=== PATIENT | female | born 1985 | race African-American/Black ===

== ENCOUNTER 2016-08-19 10:06 | Emergency (ER) | payer OTHER ==
[~2016-08-19] VITALS: Ht 165.1 cm; Wt 99.3 kg
[2016-08-19 10:12] VITALS: BP 116/78; PULSE 72; RESP 16; TEMP 99; O2SAT 100
[2016-08-19 10:33] LABS: BLOOD, URINE TRACE (NEG); GLUCOSE,URINE NEG (NEG); KETONE, URINE NEG (NEG); NITRITE,URINE NEG (NEG)
[2016-08-19 11:14] LABS: METHOD OF COLLECTION CLEAN CATCH; RBC, URINE 0-3 /hpf (0-3); URINE COLOR YELLOW (YELLW/STRAW)
[2016-08-19 11:15] LABS: COMMENT (UR) CULT NOT INDICATED; CULTURE IF INDICATED CULT NOT INDICATED; SQUAMOUS EPITHELIAL CELL URINE 0-5 /hpf (0-5)
[2016-08-19] MEDS ORDERED: CEPH-460 PO (11:16)
[2016-08-19] MEDS ORDERED: PYRI200T4 PO (11:16)
--- NOTE | 2016-08-19 11:16 | PD ---
HPI Chief Complaint: Complaint Time Seen by Provider: 11:01 Travel History International Travel<30 days: No Contact w/Intl Traveler<30days: No Traveled to known affect area: No History of Present Illness HPI 31-year-old woman who presents to the emergency department complaining of pain with urination and some low back pain ongoing for the past several days. No fevers or chills, nausea vomiting, vaginal discharge, vaginal bleeding. She has a history of urinary tract infections and states this feels very similar to when she's had trouble in the past. She is currently sexually active one male partner. History Past Medical History Medical History: Denies Significant Hx Tetanus Vaccination: Unknown LMP: 07/19/17 : 3 Para: 1 Social History Alcohol Use: No (occ) Tobacco Use: No Allergies-Medications (Allergen,Severity, Reaction): Coded Allergies: No Known Allergies (Verified , 08/19/16) Reported Meds & Prescriptions Reported Meds & Active Scripts Active Review of Systems Except as stated in HPI: all other systems reviewed are Neg Physical Exam Narrative GENERAL: Well-appearing 31 year-old woman, no acute distress. SKIN: Warm and dry. CARDIOVASCULAR: Regular rate and rhythm. No murmur appreciated. RESPIRATORY: No accessory muscle use. Clear to auscultation. Breath sounds equal bilaterally. GASTROINTESTINAL: Abdomen soft, non-tender, nondistended. Hepatic and splenic margins not palpable. MUSCULOSKELETAL: No obvious deformities. PELVIC: Normal external female genitalia. Scant white vaginal discharge. Minimal pelvic tenderness. No camila cervical motion tenderness, uterine enlargement, or adnexal masses. Data Data Last Documented VS Vital Signs Date Time Temp Pulse Resp B/P Pulse Ox O2 Delivery O2 Flow Rate FiO2 08/19/16 10:12 99.0 72 16 116/78 100 Orders Urinalysis - C+S If Indicated (08/19/16 10:16) Ed Urine Pregnancytest Poc (08/19/16 10:16) Ibuprofen (Motrin) (08/19/16 11:30) Gc And Chlamydia Pcr (08/19/16 11:24) Wet Prep Profile (08/19/16 11:24) Labs Laboratory Tests Test 08/19/16 10:17 Urine Collection Type CLEAN CATCH Urine Color YELLOW Urine Turbidity CLEAR Urine pH 6.0 Urine Specific [place] 1.021 Urine Protein NEG mg/dL Urine Glucose (UA) NEG mg/dL Urine Ketones NEG mg/dL Urine Occult Blood TRACE Urine Nitrite NEG Urine Bilirubin NEG Urine Leukocyte Esterase NEG Urine RBC 0-3 /hpf Urine Squamous Epithelial 0-5 /hpf Cells Microscopic Urinalysis Comment CULT NOT INDICATED Urine Collection Time 10:17 [facility] Medical Decision Making Medical Screen Exam Complete: Yes Emergency Medical Condition: Yes Interpretation(s) Point of care hCG negative UA negative Differential Diagnosis UTI, cervicitis, other Narrative Course Medical decision making: INITIAL: 31-year-old with symptoms strongly suggestive of urinary tract infection. We'll check UA, likely outpatient treatment. 11:25 AM: UA negative. Patient on repeat questioning does endorse some abnormal vaginal discharge, thinning clear, that she attributes to her which she thought was a urinary tract infection. We'll do pelvic exam, check GC chlamydia for possible STI. FINAL: Normal pelvic exam. Etiology of patient's discomfort is unclear. Recommend supportive treatment, follow-up with her primary physician if not improved in 7-10 days. Diagnosis Primary Impression: Lower abdominal pain Additional Instructions: Take Naprosyn as needed for pain. Follow-up with her primary doctor for not completely well in 7-10 days. Return to the emergency department for any new or worsening symptoms. Med/Other Pt SpecificInfo: Prescription(s) given, No Change to Meds Scripts Naproxen (Naprosyn)500 Mg His177 Mg PO BID PRN (PAIN SCALE 1 TO 10) #20 TAB Prov:Gerber Hernandez MD 08/19/16 Disposition: 01 DISCHARGE HOME Condition: Stable Gerber Hernandez MD Aug 19, 2016 11:16
[2016-08-19] MEDS ORDERED: IBUPROFEN 600 MG TAB PO ONE (11:30)
[2016-08-19] MEDS ORDERED: NAPR500 PO (11:50)
[2016-08-19 19:40] LABS: CHLAMYDIA PCR NOT DETECTED (NOT DETECT); NEISSERIA PCR NOT DETECTED (NOT DETECT)
== END 2016-08-19 12:05 | disposition home or self-care (01) ==
LOC: PHED 10:06 → PHEFT 12:05
DX: R10.30 Lower abdominal pain, unspecified (principal)
CPT/HCPCS: 81001; 84703; 87210; 87491; 87591; 99283

== ENCOUNTER 2016-11-29 08:15 | Emergency (ER) | payer MEDICAID, OTHER ==
[~2016-11-29] VITALS: Ht 165.1 cm; Wt 96.1 kg
[~2016-11-29 08:15] MED LIST: NAPR500 PO
[2016-11-29 08:19] VITALS: BP 97/67; PULSE 84; RESP 16; TEMP 97.5; O2SAT 100
[2016-11-29] MEDS ORDERED: SODIUM CHLORIDE 0.9% FLUSH 10 ML FLUSH IVF PRN (08:45)
[2016-11-29] MEDS ORDERED: SODIUM CHLORID 0.9% 500 ML INJ 500 ML IV ONE (08:45)
[2016-11-29] MEDS ORDERED: MORPHINE SULFATE 4 MG/ML INJ IV PUSH ONE (08:45)
[2016-11-29] MEDS ORDERED: KETOROLAC TROMETHAMINE 30 MG/ML (IVP) VIAL IV PUSH ONE (08:45)
[2016-11-29] MEDS ORDERED: ONDANSETRON HCL 4 MG/2 ML VIAL IV PUSH ONE (08:45)
--- NOTE | 2016-11-29 08:46 | PD ---
HPI Chief Complaint: GI Complaint Time Seen by Provider: 08:27 Travel History International Travel<30 days: No Contact w/Intl Traveler<30days: No Traveled to known affect area: No History of Present Illness HPI The patient is a 31-year-old after [place]ian female who presents to the emergency department for left-sided chest pain and left axilla pain. The patient has a one-week history of left axillary/shoulder pain, she initially thought she slept on her shoulder roll. The patient then thought she possibly had dislocated her left shoulder. The patient states the pain is under the left axilla, radiates to the anterior aspect left chest wall and to the posterior aspect left shoulder, worse with palpation and certain movements. She denies any numbness or tingling of the left upper extremity. The patient is right-hand dominant. She denies any anterior chest pain except associated over the anterior aspect left shoulder. She denies any shortness of breath. She does complain of mild nausea and dizziness. The patient denies any recent hospitalizations, travel, surgeries, or history of pulmonary embolism/DVT. The patient denies any swollen over the affected area but does notice painful. She denies any history of hidradenitis. Symptoms are moderate, slightly worse with palpation and certain movements, minimally alleviated at rest. She denies any associated fever. PFSH Past Medical History Medical History: Denies Significant Hx Hx Anticoagulant Therapy: No Asthma: No Cancer: No Cardiovascular Problems: No Diabetes: No Diminished Hearing: No Endocrine: No Gastrointestinal Disorders: No Genitourinary: No Hepatitis: No Hiatal Hernia: No Hypertension: No Medical other: No Musculoskeletal: No Neurologic: No Psychiatric: No Reproductive: No Respiratory: No Thyroid Disease: No Influenza Vaccination: No ?: Not : 3 Para: 1 Miscarriage: 1 : 1 Past Surgical History Abdominal Surgery: No AICD: No Cardiac Surgery: No Ear Surgery: No Endocrine Surgery: No Eye Surgery: No Genitourinary Surgery: No Gynecologic Surgery: No Joint Replacement: No Neurologic Surgery: No Oral Surgery: No Pacemaker: No Thoracic Surgery: No Other Surgery: No Social History Alcohol Use: No Tobacco Use: Yes (1 cig daily) Substance Use: No Allergies-Medications (Allergen,Severity, Reaction): Coded Allergies: No Known Allergies (Verified , 11/29/16) Reported Meds & Prescriptions Reported Meds & Active Scripts Active No Active Prescriptions or Reported Medications Review of Systems Except as stated in HPI: all other systems reviewed are Neg General / Constitutional: No: Fever HENT: Positive: Lightheadedness Cardiovascular: Positive: Chest Pain or Discomfort (pain under the left axilla and anterior aspect left chest just anterior to the left shoulder, worse with palpation), No: Diaphoresis Respiratory: No: Shortness of Breath Gastrointestinal: Positive: Nausea, No: Vomiting, Abdominal Pain Musculoskeletal: Positive: Pain (as noted in the history of present illness) Neurologic: No: Paresthesia, Sensory Disturbance Physical Exam Narrative GENERAL: Awake, alert, pleasant 31-year-old female who appears her stated age and is in no acute respiratory distress. SKIN: Focused skin assessment warm/dry. HEAD: Atraumatic. Normocephalic. EYES: No injection or drainage. ENT: No nasal bleeding or discharge. Mucous membranes pink and moist. NECK: Trachea midline. No JVD. CARDIOVASCULAR: Regular rate and rhythm. No murmur appreciated. RESPIRATORY: No accessory muscle use. Clear to auscultation. Breath sounds equal bilaterally. GASTROINTESTINAL: Abdomen soft, non-tender, nondistended. No rebound tenderness. MUSCULOSKELETAL: The patient has tenderness in the left axilla, I cannot palpate or localize any single enlarged nodes. No obvious fluctuance or evidence of hidradenitis. Patient is able to extend the left arm as well as abduct and adduct left shoulder and internally rotate the shoulder. Positive left radial pulse. Intrinsic hand muscles on the left are intact. NEUROLOGICAL: Awake and alert. No obvious cranial nerve deficits. Motor grossly within normal limits. Normal speech. PSYCHIATRIC: Appropriate mood and affect; insight and judgment normal. Data Data Last Documented VS Vital Signs Date Time Temp Pulse Resp B/P Pulse Ox O2 Delivery O2 Flow Rate FiO2 11/29/16 09:15 101/62 104/68 11/29/16 08:59 98 Room Air 11/29/16 08:19 97.5 84 16 Orders Electrocardiogram (11/29/16 08:37) Ckmb (Isoenzyme) Profile (11/29/16 08:37) Complete Blood Count With Diff (11/29/16 08:37) Comprehensive Metabolic Panel (11/29/16 08:37) D-Dimer (11/29/16 08:37) Magnesium (Mg) (11/29/16 08:37) Prothrombin Time / Inr (Pt) (11/29/16 08:37) Act Partial Throm Time (Ptt) (11/29/16 08:37) Troponin I (11/29/16 08:37) Chest, Single Ap (11/29/16 08:37) Ecg Monitoring (11/29/16 08:37) Bilateral Bp Monitoring (11/29/16 08:37) Iv Access Insert/Monitor (11/29/16 08:37) Oximetry (11/29/16 08:37) Oxygen Administration (11/29/16 08:37) Morphine Inj (Morphine Inj) (11/29/16 08:45) Sodium Chloride 0.9% Flush (Ns Flush) (11/29/16 08:45) Sodium Chlorid 0.9% 500 Ml Inj (Ns 500 M (11/29/16 08:45) Ondansetron Inj (Zofran Inj) (11/29/16 08:45) Ketorolac Inj (Toradol Inj) (11/29/16 08:45) Labs Laboratory Tests Test 11/29/16 08:54 White Blood Count 6.0 TH/MM3 Red Blood Count 4.61 MIL/MM3 Hemoglobin 12.9 GM/DL Hematocrit 39.7 % Mean Corpuscular Volume 86.1 FL Mean Corpuscular Hemoglobin 28.1 PG Mean Corpuscular Hemoglobin 32.7 % Concent Red Cell Distribution Width 12.6 % Platelet Count 262 TH/MM3 Mean Platelet Volume 7.5 FL Neutrophils (%) (Auto) 68.0 % Lymphocytes (%) (Auto) 22.5 % Monocytes (%) (Auto) 6.8 % Eosinophils (%) (Auto) 2.2 % Basophils (%) (Auto) 0.5 % Neutrophils # (Auto) 4.2 TH/MM3 Lymphocytes # (Auto) 1.3 TH/MM3 Monocytes # (Auto) 0.4 TH/MM3 Eosinophils # (Auto) 0.1 TH/MM3 Basophils # (Auto) 0.0 TH/MM3 CBC Comment DIFF FINAL Differential Comment Prothrombin Time 11.2 SEC Prothromb Time International 1.0 RATIO Ratio Activated Partial 27.9 SEC Thromboplast Time D-Dimer Quantitative (PE/DVT) 0.33 MG/L FEU Sodium Level 142 MEQ/L Potassium Level 3.7 MEQ/L Chloride Level 107 MEQ/L Carbon Dioxide Level 23.6 MEQ/L Anion Gap 11 MEQ/L Blood Urea Nitrogen 9 MG/DL Creatinine 0.71 MG/DL Estimat Glomerular Filtration 118 ML/MIN Rate Random Glucose 121 MG/DL Calcium Level 8.5 MG/DL Magnesium Level 2.1 MG/DL Total Bilirubin 0.4 MG/DL Aspartate Amino Transf 12 U/L (AST/SGOT) Alanine Aminotransferase 24 U/L (ALT/SGPT) Alkaline Phosphatase 78 U/L Total Creatine Kinase 96 U/L Troponin I LESS THAN 0.02 NG/ML Total Protein 6.8 GM/DL Albumin 3.6 GM/DL MDM Medical Decision Making Medical Screen Exam Complete: Yes Emergency Medical Condition: Yes Medical Record Reviewed: Yes Interpretation(s) EKG reveals normal sinus rhythm with a rate of 75. Q wave noted in lead 3. Low QRS voltage in precordial leads. Laboratory Tests Test 11/29/16 08:54 White Blood Count 6.0 TH/MM3 Red Blood Count 4.61 MIL/MM3 Hemoglobin 12.9 GM/DL Hematocrit 39.7 % Mean Corpuscular Volume 86.1 FL Mean Corpuscular Hemoglobin 28.1 PG Mean Corpuscular Hemoglobin 32.7 % Concent Red Cell Distribution Width 12.6 % Platelet Count 262 TH/MM3 Mean Platelet Volume 7.5 FL Neutrophils (%) (Auto) 68.0 % Lymphocytes (%) (Auto) 22.5 % Monocytes (%) (Auto) 6.8 % Eosinophils (%) (Auto) 2.2 % Basophils (%) (Auto) 0.5 % Neutrophils # (Auto) 4.2 TH/MM3 Lymphocytes # (Auto) 1.3 TH/MM3 Monocytes # (Auto) 0.4 TH/MM3 Eosinophils # (Auto) 0.1 TH/MM3 Basophils # (Auto) 0.0 TH/MM3 CBC Comment DIFF FINAL Differential Comment Prothrombin Time 11.2 SEC Prothromb Time International 1.0 RATIO Ratio Activated Partial 27.9 SEC Thromboplast Time D-Dimer Quantitative (PE/DVT) 0.33 MG/L FEU Sodium Level 142 MEQ/L Potassium Level 3.7 MEQ/L Chloride Level 107 MEQ/L Carbon Dioxide Level 23.6 MEQ/L Anion Gap 11 MEQ/L Blood Urea Nitrogen 9 MG/DL Creatinine 0.71 MG/DL Estimat Glomerular Filtration 118 ML/MIN Rate Random Glucose 121 MG/DL Calcium Level 8.5 MG/DL Magnesium Level 2.1 MG/DL Total Bilirubin 0.4 MG/DL Aspartate Amino Transf 12 U/L (AST/SGOT) Alanine Aminotransferase 24 U/L (ALT/SGPT) Alkaline Phosphatase 78 U/L Total Creatine Kinase 96 U/L Troponin I LESS THAN 0.02 NG/ML Total Protein 6.8 GM/DL Albumin 3.6 GM/DL Chest x-rays unremarkable. Differential Diagnosis Differential diagnosis includes abscess, hidradenitis, pulmonary embolism, lymphadenitis, cancer, neuralgia, DVT. Narrative Course IV was established, labs are drawn and sent, and the patient was placed on cardiac telemetry monitoring and continuous pulse oximetry monitoring. EKG was ordered and interpreted. D-dimer sent to lab. The patient was administered morphine, Zofran, and IV fluids. Chest x-rays unremarkable. D-dimer is negative. EKG reveals low QRS voltage, however, chest x-ray is unremarkable. Both the patient's pain is radiating from the left axilla, shortness of soft tissue injury versus lymphadenitis. Therefore, patient will be placed on Keflex and an anti-inflammatory as well as pain medication. She is advised to follow-up with her primary physician and return if symptoms worsen or progress. Diagnosis Primary Impression: Pain in left axilla Patient Instructions: General Instructions Additional Instructions: Medications as directed. Follow-up with her primary physician. Return if symptoms worsen or progress. Warm compresses to the left axilla. Med/Other Pt SpecificInfo: Prescription(s) given Scripts Hydrocodone-Acetaminophen ([place])5-325 mg Tab1 Tab PO Q6H PRN (PAIN) #12 TAB Ref 0 Prov:Nando John MD 11/29/16 Ibuprofen 600 Mg [id number] Mg PO Q6H PRN (Pain/Inflammation) #20 TAB Ref 0 Prov:Nando John MD 11/29/16 Cephalexin (Keflex)500 Mg [id number] Mg PO Q6H 7 Days Ref 0 Prov:Nando John MD 11/29/16 Disposition: 01 DISCHARGE HOME Condition: Stable Nando John MD Nov 29, 2016 08:46
[2016-11-29 08:59] VITALS: O2SAT 98
[2016-11-29 08:59] LABS: AUTOMATED NEUTROPHIL # 4.2 TH/MM3 (1.8-7.7); BASOPHIL % 0.5 % (0.0-2.0); EOSINOPHIL # 0.1 TH/MM3 (0-0.4); EOSINOPHIL % 2.2 % (0.0-4.0); HEMATOCRIT 39.7 % (35.0-46.0); HEMO FLAGS DIFF FINAL; LYMPH % 22.5 % (9.0-44.0); LYMPHOCYTE # 1.3 TH/MM3 (1.0-4.8); MEAN CELL VOLUME 86.1 FL (80.0-100.0); MEAN CORPUSCULAR HEMOGLOBIN 28.1 PG (27.0-34.0); MEAN CORPUSCULAR HGB CONC 32.7 % (32.0-36.0); MONO % 6.8 % (0.0-8.0); PLATELET COUNT 262 TH/MM3 (150-450); RED BLOOD COUNT 4.61 MIL/MM3 (4.00-5.30); RED CELL DISTRIBUTION WIDTH 12.6 % (11.6-17.2)
[2016-11-29 09:06] LABS: CHLORIDE 107 MEQ/L (98-107); POTASSIUM 3.7 MEQ/L (3.5-5.1); SODIUM (NA) 142 MEQ/L (136-145)
[2016-11-29 09:10] LABS: ANION GAP 11 MEQ/L (5-15); BICARBONATE 23.6 MEQ/L (21.0-32.0); BLOOD UREA NITROGEN 9 MG/DL (7-18); MAGNESIUM 2.1 MG/DL (1.5-2.5)
[2016-11-29 09:13] LABS: ALT (GPT) 24 U/L (10-53); AST (GOT) 12 U/L (15-37); GLOMERULAR FILTRATION RATE 118 ML/MIN (>89)
[2016-11-29 09:15] VITALS: BP_SYST 101; BP_SYST 104; BP_DIAS 62; BP_DIAS 68
[2016-11-29 09:15] LABS: TOTAL BILIRUBIN ADULT 0.4 MG/DL (0.2-1.0)
[2016-11-29 09:16] LABS: ALKALINE PHOSPHATASE 78 U/L (45-117)
[2016-11-29 09:20] LABS: CREATINE KINASE 96 U/L (26-192)
[2016-11-29 09:28] LABS: APTT (PATIENT) 27.9 SEC (24.3-30.1); PROTHROMBIN TIME - PATIENT 11.2 SEC (9.8-11.6)
[2016-11-29] MEDS ORDERED: CEPH-460 PO (09:39)
[2016-11-29] MEDS ORDERED: NORC5TAB PO (09:39)
[2016-11-29] MEDS ORDERED: IBUP-232 PO (09:39)
--- NOTE | 2016-11-29 09:56 | RADHPO ---
EXAM DATE/TIME: 11/29/2016 09:19 [facility] COMPARISON: CHEST PA & LAT, September 20, 2015, 14:10. INDICATIONS : Chest pain. MEDICAL HISTORY : None. SURGICAL HISTORY : None. ENCOUNTER: Initial ACUITY: 1 day PAIN SCORE: 6/10 LOCATION: Bilateral chest FINDINGS: The lungs are clear without infiltrate, nodule, or mass. There is no appreciable pleural effusion fo r technique. Heart and mediastinum are unremarkable. CONCLUSION: No acute cardiopulmonary disease. Pita Sousa MD on November 29, 2016 at 9:40 Board Certified Radiologist. This report was verified electronically.
--- NOTE | 2016-11-29 14:03 | EKG ---
Date Performed: 11/29/2016 Time Performed: 08:43:58 PTAGE: 31 years EKG: Sinus rhythm Low QRS voltage in the precordial leads Poor R wave progression which may be normal variant Since pr evious tracing, no significant change noted Abnormal ECG PREVIOUS TRACING : 09/20/2015 12.22 DOCTOR: Tristen Wang Interpretating Date/Time 11/29/2016 14:01:58
== END 2016-11-29 10:08 | disposition home or self-care (01) ==
LOC: PHED 08:15
DX: M79.622 Pain in left upper arm (principal); R94.31 Abnormal electrocardiogram [ECG] [EKG]; R42 Dizziness and giddiness; R11.0 Nausea; F17.210 Nicotine dependence, cigarettes, uncomplicated; R07.9 Chest pain, unspecified
CPT/HCPCS: 71010; 80053; 82550; 83735; 84484; 85025; 85379; 85610; 85730; 93005; 96374; 96375; 99284; J1885; J2270; J2405; J7040

== ENCOUNTER 2016-12-14 11:15 | Emergency (ER) | payer SELFPAY ==
[~2016-12-14] VITALS: Ht 165.1 cm; Wt 97.0 kg
[~2016-12-14 11:15] MED LIST changes: +CEPH-460 PO; +IBUP-232 PO; -NAPR500 PO; +NORC5TAB PO
[2016-12-14 11:18] VITALS: BP 112/79; PULSE 73; RESP 16; TEMP 98.3; O2SAT 100
--- NOTE | 2016-12-14 11:58 | PD ---
HPI Chief Complaint: Pain: Acute or Chronic Time Seen by Provider: 11:38 Travel History International Travel<30 days: No Contact w/Intl Traveler<30days: No Traveled to known affect area: No History of Present Illness HPI 31-year-old female presents with persistent left axilla and shoulder pain since recent evaluation here. She is been taking Motrin and the antibiotics as prescribed without change. She states she does not have a primary care physician. She states that she's also had a little bit of upset stomach with some diarrhea. She denies other specific complaints. She states when she moves her arm the pain is worse and will go into her neck and chest. She denies other modifying factors other than sometimes with deep breaths. Quality pain is sharp. Severity is moderate. PFSH Past Medical History Hx Anticoagulant Therapy: No Asthma: No Cancer: No Cardiovascular Problems: No Diabetes: No Diminished Hearing: No Endocrine: No Gastrointestinal Disorders: No Genitourinary: No Hepatitis: No Hiatal Hernia: No Hypertension: No Musculoskeletal: No Neurologic: No Psychiatric: No Reproductive: No Respiratory: No Thyroid Disease: No Influenza Vaccination: No ?: Unknown LMP: LAST MONTH"CAN'T REMEMBER" : 3 Para: 1 Miscarriage: 1 : 1 Past Surgical History Abdominal Surgery: No AICD: No Cardiac Surgery: No Ear Surgery: No Endocrine Surgery: No Eye Surgery: No Genitourinary Surgery: No Gynecologic Surgery: No Joint Replacement: No Neurologic Surgery: No Oral Surgery: No Pacemaker: No Thoracic Surgery: No Other Surgery: No Social History Alcohol Use: No Tobacco Use: Yes (1 cig daily) Substance Use: No Allergies-Medications (Allergen,Severity, Reaction): Coded Allergies: No Known Allergies (Verified , 12/14/16) Reported Meds & Prescriptions Reported Meds & Active Scripts Active Skelaxin (Metaxalone) 800 Mg Tab 800 Mg PO HS PRN Review of Systems Except as stated in HPI: all other systems reviewed are Neg Physical Exam Narrative GENERAL: Well-nourished, well-developed patient. Well-appearing SKIN: Warm and dry. HEAD: Normocephalic and atraumatic. EYES: No injection or drainage. ENT: No nasal drainage noted. NECK: Supple, trachea midline. Nontender midline, left trapezius tender to palpation CARDIOVASCULAR: Regular rate and rhythm RESPIRATORY: Breath sounds equal bilaterally. No accessory muscle use. GASTROINTESTINAL: Abdomen soft, non-tender, nondistended. EXTREMITIES: No edema.Pain with palpation of palpation and range of motion of left shoulder and axilla without associated lymphadenopathy or cellulitis, no pain with other joints , neurovascularly intact, no lacerations over, compartments soft. BACK: Nontender without obvious deformity in midline. NEUROLOGICAL: Awake and alert. Motor and sensory grossly within normal limits. Normal speech. Data Data Last Documented VS Vital Signs Date Time Temp Pulse Resp B/P Pulse Ox O2 Delivery O2 Flow Rate FiO2 12/14/16 11:18 98.3 73 16 112/79 100 Orders Shoulder, Complete (>2vws) (12/14/16 ) Ketorolac Inj (Toradol Inj) (12/14/16 12:00) MDM Medical Decision Making Medical Screen Exam Complete: Yes Emergency Medical Condition: Yes Medical Record Reviewed: Yes (recent ER visit with normal blood work and d- dimer) Interpretation(s) left shoulder xray no acute Differential Diagnosis Musculoskeletal strain, tendinitis, rotator cuff tear Narrative Course Will check left shoulder x-ray and dose with Toradol and reevaluate. xray without fracture, Patient denies any new complaints, all questions answered. Patient knows that follow up is incumbent on them and to return to the emergency room immediately if new or worsening symptoms develop. Patient given strict return precautions, vitals reviewed and are normal, agrees to further workup as an outpatient. nurse at bedside Diagnosis Primary Impression: Pain in left axilla Additional Impression: Left shoulder pain Qualified Code: M25.512 - Acute pain of left shoulder Patient Instructions: General Instructions Additional Instructions: motrin with food, follow with primary tommorrow, return with any emergent need Med/Other Pt SpecificInfo: Prescription(s) given Scripts Metaxalone (Skelaxin)800 Mg [id number] Mg PO HS PRN (PAIN SCALE 1 TO 10) #10 TAB Prov:Celena Santoyo MD 12/14/16 Disposition: 01 DISCHARGE HOME Condition: Stable Celena Santoyo MD December 14, 2016 11:58
[2016-12-14] MEDS ORDERED: KETOROLAC TROMETHAMINE 60 MG/2 ML (IM) VIAL IM ONE (12:00)
--- NOTE | 2016-12-14 13:16 | RADHPO ---
EXAM DATE/TIME: 12/14/2016 12:35 [facility] COMPARISON: CHEST SINGLE AP, November 29, 2016, 9:19. INDICATIONS : Left shoulder, axillary pain. MEDICAL HISTORY : None. SURGICAL HISTORY : None. ENCOUNTER: Initial ACUITY: 1 month PAIN SCORE: 6/10 LOCATION: Left axillary shoulder FINDINGS: Multiple view examination of the left shoulder demonstrates no evidence of fracture or dislocation. The glenohumeral and acromioclavicular joints are maintained. There is normal range of motion betwee n internal and external rotation. Bony mineralization is normal. CONCLUSION: 1. Normal examination. Devon Zhu MD on December 14, 2016 at 13:14 Board Certified Radiologist. This report was verified electronically.
[2016-12-14] MEDS ORDERED: META800T81 PO (13:18)
== END 2016-12-14 13:33 | disposition home or self-care (01) ==
LOC: PHED 11:15
DX: M25.512 Pain in left shoulder (principal)
CPT/HCPCS: 73030; 96372; 99283; J1885

== ENCOUNTER 2017-04-26 10:32 | Emergency (ER) | payer MEDICAID ==
[~2017-04-26] VITALS: Ht 165.1 cm; Wt 96.8 kg
[~2017-04-26 10:32] MED LIST changes: -CEPH-460 PO; -IBUP-232 PO; +META800T81 PO; -NORC5TAB PO
[2017-04-26 10:50] VITALS: BP 114/76; PULSE 80; RESP 18; TEMP 98.5; O2SAT 99
--- NOTE | 2017-04-26 11:53 | PD ---
HPI Chief Complaint: Abdominal Pain Time Seen by Provider: 11:51 Travel History International Travel<30 days: No Contact w/Intl Traveler<30days: No History of Present Illness HPI Patient comes in complaining of suprapubic abdominal pain that began approximately week ago. Pain feels similar previous UTIs. Patient being worse over the past week. Pain radiates to her low back. Patient tried Kristalose improve his symptoms. Patient has anything making it worse. Denies any vaginal discharge, fevers, chest pain, shortness of breath, vomiting, loss or change in bowel movement, , or headaches. PFSH Past Medical History Hx Anticoagulant Therapy: No Asthma: No Cancer: No Cardiovascular Problems: No Diabetes: No Diminished Hearing: No Endocrine: No Gastrointestinal Disorders: No Genitourinary: No Hepatitis: No Hiatal Hernia: No Hypertension: No Musculoskeletal: No Neurologic: No Psychiatric: No Reproductive: No Respiratory: No Thyroid Disease: No : 3 Para: 1 Miscarriage: 1 : 1 Past Surgical History Abdominal Surgery: No AICD: No Cardiac Surgery: No Ear Surgery: No Endocrine Surgery: No Eye Surgery: No Genitourinary Surgery: No Gynecologic Surgery: No Joint Replacement: No Neurologic Surgery: No Oral Surgery: No Pacemaker: No Thoracic Surgery: No Other Surgery: No Social History Alcohol Use: No Tobacco Use: Yes (1 cig daily) Substance Use: No Allergies-Medications (Allergen,Severity, Reaction): Coded Allergies: No Known Allergies (Verified , 04/26/17) Reported Meds & Prescriptions Reported Meds & Active Scripts Active Doxycycline Hyclate 100 Mg Cap 100 Mg PO BID Flagyl (Metronidazole) 500 Mg Tab 500 Mg PO BID 14 Days Review of Systems Except as stated in HPI: all other systems reviewed are Neg Physical Exam Narrative GENERAL: Well-developed, overly nourished, in no acute distress, and non-ill appearing. SKIN: Focused skin assessment warm and dry. HEAD: Atraumatic. Normocephalic. EYES: Pupils equal and round. EOMI. No scleral icterus. No injection or drainage. ENT: No nasal bleeding or discharge. Mucous membranes pink and moist. NECK: Trachea midline. Supple. No nuclear rigidity. CARDIOVASCULAR: Regular rate and rhythm. No murmur appreciated. RESPIRATORY: No accessory muscle use. No respiratory distress. Clear to auscultation. Breath sounds equal bilaterally. GASTROINTESTINAL: Abdomen soft, nondistended, and no guarding. Hepatic and splenic margins not palpable. Normal bowel sounds 4. No pulsatile mass. Patient reports tenderness suprapubic area. No CVA tenderness. GENITOURINARY: Normal external genitalia without lesions or erythema. Vaginal vault without blood or drainage. Cervical os was closed with greenish drainage. Cervical motion tenderness. Uterus nontender and nonenlarged. Bilateral adnexa nontender without masses. Exam was performed presents of staff auditor Tressa at all times. MUSCULOSKELETAL: No obvious deformities. No clubbing. No cyanosis. No edema. Full range of motion. NEUROLOGICAL: Awake and alert. No obvious cranial nerve deficits. Motor grossly within normal limits. Normal speech. PSYCHIATRIC: Appropriate mood and affect; insight and judgment normal. Data Data Last Documented VS Vital Signs Date Time Temp Pulse Resp B/P (MAP) Pulse Ox O2 Delivery O2 Flow Rate FiO2 04/26/17 15:25 74 16 118/72 (87) 99 04/26/17 10:50 98.5 Orders Orders Urinalysis - C+S If Indicated (04/26/17 11:45) Ed Urine Pregnancytest Poc (04/26/17 11:45) Complete Blood Count With Diff (04/26/17 11:49) Comprehensive Metabolic Panel (04/26/17 11:49) Iv Access Insert/Monitor (04/26/17 11:49) Ecg Monitoring (04/26/17 11:49) Urine Culture (04/26/17 11:57) Gc And Chlamydia Pcr (04/26/17 14:36) Wet Prep Profile (04/26/17 14:36) Ceftriaxone Inj (Rocephin Inj) (04/26/17 14:45) Lidocaine Pf 1% Inj (Xylocaine-Mpf 1% In (04/26/17 14:45) Labs Laboratory Tests Test 04/26/17 11:57 04/26/17 12:08 04/26/17 14:35 Urine Collection Type CLEAN CATCH Urine Color YELLOW Urine Turbidity CLEAR Urine pH 6.0 Urine Specific [place] 1.016 Urine Protein TRACE mg/dL Urine Glucose (UA) NEG mg/dL Urine Ketones NEG mg/dL Urine Occult Blood NEG Urine Nitrite NEG Urine Bilirubin NEG Urine Leukocyte Esterase TRACE Urine RBC 0-3 /hpf Urine WBC 9-14 /hpf Urine Squamous Epithelial Cells > 8 /hpf Urine Bacteria MOD /hpf Microscopic Urinalysis Comment CULTURE INDICATED Urine Collection Time 11:57 White Blood Count 7.6 TH/MM3 Red Blood Count 4.71 MIL/MM3 Hemoglobin 13.7 GM/DL Hematocrit 40.1 % Mean Corpuscular Volume 85.2 FL Mean Corpuscular Hemoglobin 29.0 PG Mean Corpuscular Hemoglobin Concent 34.0 % Red Cell Distribution Width 12.2 % Platelet Count 279 TH/MM3 Mean Platelet Volume 7.5 FL Neutrophils (%) (Auto) 70.5 % Lymphocytes (%) (Auto) 21.9 % Monocytes (%) (Auto) 5.6 % Eosinophils (%) (Auto) 1.6 % Basophils (%) (Auto) 0.4 % Neutrophils # (Auto) 5.4 TH/MM3 Lymphocytes # (Auto) 1.7 TH/MM3 Monocytes # (Auto) 0.4 TH/MM3 Eosinophils # (Auto) 0.1 TH/MM3 Basophils # (Auto) 0.0 TH/MM3 CBC Comment DIFF FINAL Differential Comment Blood Urea Nitrogen 9 MG/DL Creatinine 0.68 MG/DL Random Glucose 90 MG/DL Total Protein 7.7 GM/DL Albumin 3.8 GM/DL Calcium Level 8.6 MG/DL Alkaline Phosphatase 89 U/L Aspartate Amino Transf (AST/SGOT) 13 U/L Alanine Aminotransferase (ALT/SGPT) 25 U/L Total Bilirubin 0.5 MG/DL Sodium Level 138 MEQ/L Potassium Level 3.8 MEQ/L Chloride Level 106 MEQ/L Carbon Dioxide Level 25.3 MEQ/L Anion Gap 7 MEQ/L Estimat Glomerular Filtration Rate 123 ML/MIN Clue Cells (Wet Prep) NONE SEEN Vaginal Trichomonas (Wet Prep) NONE SEEN Vaginal Yeast (Wet Prep) NONE SEEN MDM Medical Decision Making Medical Screen Exam Complete: Yes Emergency Medical Condition: Yes Differential Diagnosis UTI, pyelonephritis, PID, STD, cervicitis, electrolyte abnormality, other Narrative Course The patient presented with lower abdominal/pelvic pain and the patient was accordingly mildly tender. The patient otherwise appeared comfortable and hydrated. Urine analysis revealed no evidence of . Evaluation revealed clinical suspicion for cervicitis/PID. There was no evidence of TOA at this time. Findings and suspicion were discussed with the patient and instructed to have sexual partners checked and treated. Evaluation revealed no clinical evidence or picture of acute ovarian torsion at this time. The patient appears comfortable and no distress and no vomiting. The patient is to return if worsens , pain worsens or changes, develop persistent fever, inability to tolerate fluids with or without vomiting, unable to establish follow up or as needed. There was no evidence of an acute, surgical abdomen at this time. There was no clinical evidence to support cholecystitis/cholelithiasis, pancreatitis, perforation of gastric ulcer, colitis, diverticulitis, obstruction, volvulus, early appendicitis, or hernial incarceration or strangulation at this time. There was no evidence to support vascular pathology such as AAA, mesenteric ischemia, nor GIB. There was also no clinical evidence by history, exam or risk factors to suggest atypical presentation of cardiac disease such as ACS, AMI or atypical angina.. The patient agreed with plan of care and management. The patient was instructed to follow up with their physician and or [facility] and screening (hepatitis, syphilis, HIV etc.). She was provided with STD information with discharge instructions. Patient agreed with plan. Patient in no obvious distress upon re-evaluation. All pertinent laboratory result(s) discussed with patient. Patient was asked if they wanted to speak to my attending, which the patient did not wish to do at this time. Any questions/ concerns in reference to patient diagnosis/condition discussed and clarified prior to patient's discharge. Reinforced sheer importance of close follow up with patient's primary physician or primary care clinic and/or health Department. Instructed patient to return to ED immediately, if symptoms return/ worsen. Pt showed understanding of above instructions. Further instructions and recommendations were detailed in discharge paperwork. Pt ambulated without difficulty out of ED at discharge. Diagnosis Primary Impression: PID (acute pelvic inflammatory disease) Referrals: [facility] Dept. Patient Instructions: General Instructions, Pelvic Inflammatory Disease (ED), Safe Sex Practices for Adolescents (GEN), Sexually Transmitted Diseases (DC) Additional Instructions: Follow-up with your primary care physician and/or health Department for additional STD testing. Notify all sexual partners have them tested and treated. Do not have intercourse until all sexual partners tested and treated. Practice safe sex to prevent further STDs and/or unwanted pregnancies. If you would like a copy of your gonorrhea and chlamydia results bring a photo ID to medical records in 24-48 hours to get a copy. Return to the emergency department if symptoms get worse. Med/Other Pt SpecificInfo: Prescription(s) given Scripts Doxycycline Hyclate (Doxycycline Hyclate) 100 Mg Cap 100 MG PO BID for Infection, #28 CAP 0 Refills Prov: Nando John MD 04/26/17 Metronidazole (Flagyl) 500 Mg Tab 500 MG PO BID for Infection for 14 Days, TAB 0 Refills Prov: Nando John MD 04/26/17 Disposition: 01 DISCHARGE HOME Condition: Stable Fortino Wilkins Apr 26, 2017 11:53
[2017-04-26 12:14] LABS: AUTOMATED NEUTROPHIL # 5.4 TH/MM3 (1.8-7.7); BASOPHIL % 0.4 % (0.0-2.0); EOSINOPHIL # 0.1 TH/MM3 (0-0.4); EOSINOPHIL % 1.6 % (0.0-4.0); HEMATOCRIT 40.1 % (35.0-46.0); HEMO FLAGS DIFF FINAL; LYMPH % 21.9 % (9.0-44.0); LYMPHOCYTE # 1.7 TH/MM3 (1.0-4.8); MEAN CELL VOLUME 85.2 FL (80.0-100.0); MONO % 5.6 % (0.0-8.0); NEUT % 70.5 % (16.0-70.0); PLATELET COUNT 279 TH/MM3 (150-450); RED BLOOD COUNT 4.71 MIL/MM3 (4.00-5.30); RED CELL DISTRIBUTION WIDTH 12.2 % (11.6-17.2); WHITE BLOOD COUNT 7.6 TH/MM3 (4.0-11.0)
[2017-04-26 12:15] LABS: BLOOD, URINE NEG (NEG); GLUCOSE,URINE NEG (NEG); KETONE, URINE NEG (NEG); NITRITE,URINE NEG (NEG)
[2017-04-26 12:25] LABS: METHOD OF COLLECTION CLEAN CATCH; URINE COLOR YELLOW (YELLW/STRAW)
[2017-04-26 12:26] LABS: BACTERIA, URINE MOD /hpf; COMMENT (UR) CULTURE INDICATED; CULTURE IF INDICATED CULTURE INDICATED; RBC, URINE 0-3 /hpf (0-3); SQUAMOUS EPITHELIAL CELL URINE > 8 /hpf (0-5)
[2017-04-26 12:35] LABS: CHLORIDE 106 MEQ/L (98-107); POTASSIUM 3.8 MEQ/L (3.5-5.1); SODIUM (NA) 138 MEQ/L (136-145)
[2017-04-26 12:39] LABS: ANION GAP 7 MEQ/L (5-15); BICARBONATE 25.3 MEQ/L (21.0-32.0); BLOOD UREA NITROGEN 9 MG/DL (7-18)
[2017-04-26 12:42] LABS: ALT (GPT) 25 U/L (10-53); AST (GOT) 13 U/L (15-37); GLOMERULAR FILTRATION RATE 123 ML/MIN (>89)
[2017-04-26 12:43] LABS: TOTAL BILIRUBIN ADULT 0.5 MG/DL (0.2-1.0)
[2017-04-26 12:45] LABS: ALKALINE PHOSPHATASE 89 U/L (45-117)
[2017-04-26] MEDS ORDERED: DOXY100C PO (14:40)
[2017-04-26] MEDS ORDERED: METR-1 PO (14:40)
[2017-04-26] MEDS ORDERED: LIDOCAINE HCL 1% PF 30 ML VIAL XX ONE (14:45)
[2017-04-26 15:25] VITALS: BP 118/72
[2017-04-26 20:08] LABS: CHLAMYDIA PCR NOT DETECTED (NOT DETECT); NEISSERIA PCR NOT DETECTED (NOT DETECT)
== END 2017-04-26 15:28 | disposition home or self-care (01) ==
LOC: PHED 10:32
DX: N73.0 Acute parametritis and pelvic cellulitis (principal)
CPT/HCPCS: 80053; 81001; 84703; 85025; 87077; 87086; 87186; 87210; 87491; 87591; 96372; 99284; J0696

== ENCOUNTER 2017-07-12 07:05 | Emergency (ER) | payer MEDICAID ==
[~2017-07-12] VITALS: Ht 165.1 cm; Wt 98.6 kg
[~2017-07-12 07:05] MED LIST changes: +DOXY100C PO; -META800T81 PO; +METR-1 PO
[2017-07-12 07:10] VITALS: BP 120/79; PULSE 88; RESP 18; TEMP 98.6; O2SAT 98
--- NOTE | 2017-07-12 07:25 | PD ---
HPI Chief Complaint: Podiatric Assistant Problem/Complaint Time Seen by Provider: 07:25 Travel History International Travel<30 days: No Contact w/Intl Traveler<30days: No Traveled to known affect area: No History of Present Illness HPI 32-year-old female came to the emergency room with history of lower abdominal discomfort, palpitations and breast feeling heavier. Patient says that she had unprotected sex about 4 weeks ago. She took morning after pill since then. However she had some spotting and is concerned that she might be . She has taken multiple home tests and they have been negative so far. The patient is convinced that she might be because this is how she felt with her previous pregnancies. Vital signs were completely stable. No history of fever or chills. PFSH Past Medical History Narrative Medical List of her past medical, surgical, social and family history is reviewed from the nursing note. Medical History: Denies Significant Hx Hx Anticoagulant Therapy: No Asthma: No Cancer: No Cardiovascular Problems: No Diabetes: No Diminished Hearing: No Endocrine: No Gastrointestinal Disorders: No Genitourinary: No Hepatitis: No Hiatal Hernia: No Hypertension: No Musculoskeletal: No Neurologic: No Psychiatric: No Reproductive: No Respiratory: No Immunizations Current: Yes Thyroid Disease: No Tetanus Vaccination: > 5 Years Influenza Vaccination: No ?: Unknown LMP: LAST WEEK:MORNING AFTER PILL AT END OF MAY : 3 Para: 1 Miscarriage: 1 : 1 Past Surgical History Surgical History: No Previous Surgery Abdominal Surgery: No AICD: No Cardiac Surgery: No Ear Surgery: No Endocrine Surgery: No Eye Surgery: No Genitourinary Surgery: No Gynecologic Surgery: No Joint Replacement: No Neurologic Surgery: No Oral Surgery: No Pacemaker: No Thoracic Surgery: No Other Surgery: No Social History Alcohol Use: Yes (occas. mix drinks) Tobacco Use: No (occas. cigs) Substance Use: No Allergies-Medications (Allergen,Severity, Reaction): Coded Allergies: No Known Allergies (Verified Adverse Reaction, Unknown, 07/14/17) Comments No known drug allergies. Reported Meds & Prescriptions Reported Meds & Active Scripts Active Zithromax Z-Darrel (Azithromycin) 250 Mg Dspk 250 Mg PO DIRECTED 500 MG (2 tabs) day 1, then 1 tab days 2-5. Narrative Medication List of her home medications reviewed from the nursing note. Review of Systems Except as stated in HPI: all other systems reviewed are Neg Cardiovascular: Positive: Palpitations Genitourinary: Positive: Pelvic Pain Physical Exam Narrative GENERAL: Awake, alert, no obvious distress SKIN: Focused skin assessment warm/dry. HEAD: Atraumatic. Normocephalic. EYES: Pupils equal and round. No scleral icterus. No injection or drainage. ENT: No nasal bleeding or discharge. Mucous membranes pink and moist. NECK: Trachea midline. No JVD. CARDIOVASCULAR: Regular rate and rhythm. No murmur appreciated. RESPIRATORY: No accessory muscle use. Clear to auscultation. Breath sounds equal bilaterally. GASTROINTESTINAL: Abdomen soft, non-tender, nondistended. Hepatic and splenic margins not palpable. MUSCULOSKELETAL: No obvious deformities. No clubbing. No cyanosis. No edema. NEUROLOGICAL: Awake and alert. No obvious cranial nerve deficits. Motor grossly within normal limits. Normal speech. PSYCHIATRIC: Extremely flat affect; insight and judgment normal. Data Data Last Documented VS Vital Signs Date Time Temp Pulse Resp B/P (MAP) Pulse Ox O2 Delivery O2 Flow Rate FiO2 07/12/17 08:40 69 16 104/69 (81) 98 07/12/17 07:10 98.6 Orders Orders Urinalysis - C+S If Indicated (07/12/17 07:30) Ed Urine Pregnancytest Poc (07/12/17 07:30) Ed Poc Ultrasound (07/12/17 ) Ed Discharge Order (07/12/17 08:30) Labs Laboratory Tests Test 07/12/17 07:35 Urine Collection Type CLEAN CATCH Urine Color YELLOW Urine Turbidity HAZY Urine pH 6.5 Urine Specific [place] 1.023 Urine Protein NEG mg/dL Urine Glucose (UA) NEG mg/dL Urine Ketones NEG mg/dL Urine Occult Blood NEG Urine Nitrite NEG Urine Bilirubin NEG Urine Leukocyte Esterase TRACE Urine WBC 0-2 /hpf Urine Squamous Epithelial Cells 6-8 /hpf Urine Bacteria RARE /hpf Microscopic Urinalysis Comment CULT NOT INDICATED MDM Medical Decision Making Medical Screen Exam Complete: Yes Emergency Medical Condition: Yes Medical Record Reviewed: Yes Differential Diagnosis , UTI Narrative Course 8:27 AM bedside urine was negative. UA was negative for any UTI. Patient insisted that she wanted an ultrasound and I did a bedside pelvic ultrasound. I noticed a right ovarian cyst that looks like a simple cyst. There were multiple smaller cysts in the left ovary but otherwise no intrauterine. I will discharge her home after reassurance. Procedures Procedure Narrative Emergency Department Pelvic ultrasound was performed with patient consent. The curvilinear probe was used in the transverse and sagittal views within the suprapubic region revealing no intrauterine . EKG Prior to Arrival: No Diagnosis Primary Impression: Pelvic pain in female Additional Impression: Ovarian cyst Qualified Codes: N83.201 - Unspecified ovarian cyst, right side Referrals: Primary Care Physician Additional Instructions: Please return to the ER the condition worsens or any other concerns. Otherwise follow-up with your primary care next couple days. Disposition: 01 DISCHARGE HOME Condition: Stable Gisell Gary MD Jul 12, 2017 07:25
[2017-07-12 07:42] LABS: BLOOD, URINE NEG (NEG); GLUCOSE,URINE NEG (NEG); KETONE, URINE NEG (NEG); NITRITE,URINE NEG (NEG); PH, URINE 6.5 (5.0-8.5)
[2017-07-12 07:55] LABS: METHOD OF COLLECTION CLEAN CATCH; URINE COLOR YELLOW (YELLW/STRAW); WBC, URINE 0-2 /hpf (0-5)
[2017-07-12 07:56] LABS: BACTERIA, URINE RARE /hpf; COMMENT (UR) CULT NOT INDICATED; CULTURE IF INDICATED CULT NOT INDICATED
[2017-07-12 08:40] VITALS: BP 104/69
== END 2017-07-12 08:44 | disposition home or self-care (01) ==
LOC: PHED 07:05
DX: R10.2 Pelvic and perineal pain (principal); N83.201 Unspecified ovarian cyst, right side; R00.2 Palpitations
CPT/HCPCS: 81001; 84703; 99284

== ENCOUNTER 2017-07-14 10:31 | Emergency (ER) | payer MEDICAID ==
[~2017-07-14] VITALS: Ht 165.1 cm; Wt 98.5 kg
[2017-07-14 10:32] VITALS: BP 129/78; PULSE 78; RESP 18; TEMP 98.7; O2SAT 100
[2017-07-14] MEDS ORDERED: SODIUM CHLORIDE 0.9% FLUSH 10 ML FLUSH IVF PRN (11:15)
[2017-07-14] MEDS ORDERED: IBUPROFEN 800 MG TAB PO ONE (11:15)
--- NOTE | 2017-07-14 11:20 | PD ---
HPI Chief Complaint: Cold / Flu Symptoms Time Seen by Provider: 11:03 Travel History International Travel<30 days: No Contact w/Intl Traveler<30days: No Traveled to known affect area: No History of Present Illness HPI 32-year-old female presents to the emergency Department with complaint of midsternal chest pain, shortness of breath, heart palpitations, and neck pain since Wednesday. Reports body aches and sore throat. Denies ear pain, nasal congestion. Reports chest congestion. Denies cough. Denies fever. Reports vomiting one time last night after drinking tea. Chest pain is intermittent. Denies recent surgery. Denies leg edema. Denies hemoptysis. Denies history of DVT/PE. Reports feeling short of breath with onset of chest pain and feels like her heart is racing. Occurs spontaneously and unknown aggravating factors. Says when she takes deep breaths it helps relieves her symptoms. Rates pain 8/10. Describes it as an aching pain. No known relieving or aggravating factors. No family history of cardiac events at this age. Denies tobacco use. Reports history of asthma as a child. No known allergies. Has no other medical complaints. No other modifying factors or associated signs and symptoms. PFSH Past Medical History Hx Anticoagulant Therapy: No Asthma: Yes Cancer: No Cardiovascular Problems: No Diabetes: No Diminished Hearing: No Endocrine: No Gastrointestinal Disorders: No Genitourinary: No Hepatitis: No Hiatal Hernia: No Hypertension: No Musculoskeletal: No Neurologic: No Psychiatric: No Reproductive: No Respiratory: No Immunizations Current: Yes Thyroid Disease: No Tetanus Vaccination: Unknown Influenza Vaccination: No ?: Unknown : 3 Para: 1 Miscarriage: 1 : 1 Past Surgical History Abdominal Surgery: No AICD: No Cardiac Surgery: No Ear Surgery: No Endocrine Surgery: No Eye Surgery: No Genitourinary Surgery: No Gynecologic Surgery: No Joint Replacement: No Neurologic Surgery: No Oral Surgery: No Pacemaker: No Thoracic Surgery: No Other Surgery: Yes (left hand surgery) Social History Alcohol Use: Yes (occas. mix drinks) Tobacco Use: No (occas. cigs) Substance Use: No Allergies-Medications (Allergen,Severity, Reaction): Coded Allergies: No Known Allergies (Verified Adverse Reaction, Unknown, 07/14/17) Reported Meds & Prescriptions Reported Meds & Active Scripts Active No Active Prescriptions or Reported Medications Review of Systems Except as stated in HPI: all other systems reviewed are Neg Physical Exam Narrative GENERAL: Well-nourished, well-developed black female patient, in no acute distress; afebrile, nontoxic-appearing; afebrile, nontoxic-appearing SKIN: Warm and dry. No rash. HEAD: Atraumatic. Normocephalic. EYES: Pupils equal and round. No scleral icterus. No injection or drainage. ENT: Mucosa pink and moist. No erythema or exudates. No uvular edema. No uvular , palatal, or tonsillar deviation. Airway patent. EARS: Bilateral pinnae and external canals appear within normal limits. Bilateral tympanic membranes without erythema, dullness or perforation. NECK: Trachea midline. No lymphadenopathy. CARDIOVASCULAR: Regular rate and rhythm. No murmur appreciated. RESPIRATORY: No accessory muscle use. Clear to auscultation. Breath sounds equal bilaterally. No retractions or tachypnea. GASTROINTESTINAL: Abdomen soft, non-tender, nondistended. Hepatic and splenic margins not palpable. Bowel sounds are active 4 quadrants. MUSCULOSKELETAL: No obvious deformities. No clubbing. No cyanosis. No edema. NEUROLOGICAL: Awake and alert. Oriented 3. No obvious cranial nerve deficits. Motor grossly within normal limits. Normal speech. Moves all extremities. 5/5 strength to all extremities. PSYCHIATRIC: Appropriate mood and affect; insight and judgment normal. Data Data Last Documented VS Vital Signs Date Time Temp Pulse Resp B/P (MAP) Pulse Ox O2 Delivery O2 Flow Rate FiO2 07/14/17 13:38 75 16 149/75 (99) 99 Room Air 07/14/17 10:32 98.7 Orders Orders Electrocardiogram (07/14/17 11:12) Basic Metabolic Panel (Bmp) (07/14/17 11:12) Ckmb (Isoenzyme) Profile (07/14/17 11:12) Complete Blood Count With Diff (07/14/17 11:12) Magnesium (Mg) (07/14/17 11:12) Prothrombin Time / Inr (Pt) (07/14/17 11:12) Act Partial Throm Time (Ptt) (07/14/17 11:12) Troponin I (07/14/17 11:12) Chest, Single Ap (07/14/17 11:12) Ecg Monitoring (07/14/17 11:12) Iv Access Insert/Monitor (07/14/17 11:12) Oximetry (07/14/17 11:12) Oxygen Administration (07/14/17 11:12) Sodium Chloride 0.9% Flush (Ns Flush) (07/14/17 11:15) Influenzae A/B Antigen (07/14/17 11:12) Group A Rapid Strep Screen (07/14/17 11:12) Ibuprofen (Motrin) (07/14/17 11:15) Strep Culture (Group A) (07/14/17 11:23) CKMB (07/14/17 11:23) CKMB% (07/14/17 11:23) Labs Laboratory Tests Test 07/14/17 11:23 White Blood Count 6.2 TH/MM3 Red Blood Count 4.45 MIL/MM3 Hemoglobin 13.2 GM/DL Hematocrit 38.9 % Mean Corpuscular Volume 87.4 FL Mean Corpuscular Hemoglobin 29.7 PG Mean Corpuscular Hemoglobin Concent 33.9 % Red Cell Distribution Width 13.0 % Platelet Count 251 TH/MM3 Mean Platelet Volume 8.1 FL Neutrophils (%) (Auto) 64.5 % Lymphocytes (%) (Auto) 23.9 % Monocytes (%) (Auto) 8.7 % Eosinophils (%) (Auto) 2.4 % Basophils (%) (Auto) 0.5 % Neutrophils # (Auto) 4.0 TH/MM3 Lymphocytes # (Auto) 1.5 TH/MM3 Monocytes # (Auto) 0.5 TH/MM3 Eosinophils # (Auto) 0.2 TH/MM3 Basophils # (Auto) 0.0 TH/MM3 CBC Comment DIFF FINAL Differential Comment Prothrombin Time 10.3 SEC Prothromb Time International Ratio 0.9 RATIO Activated Partial Thromboplast Time 27.3 SEC Blood Urea Nitrogen 10 MG/DL Creatinine 0.67 MG/DL Random Glucose 85 MG/DL Calcium Level 8.6 MG/DL Magnesium Level 1.7 MG/DL Sodium Level 136 MEQ/L Potassium Level 4.2 MEQ/L Chloride Level 105 MEQ/L Carbon Dioxide Level 26.2 MEQ/L Anion Gap 5 MEQ/L Estimat Glomerular Filtration Rate 125 ML/MIN Total Creatine Kinase 151 U/L Creatine Kinase MB 0.9 NG/ML Troponin I LESS THAN 0.02 NG/ML MDM Medical Decision Making Medical Screen Exam Complete: Yes Emergency Medical Condition: Yes Medical Record Reviewed: Yes Differential Diagnosis Influenza, pneumonia, viral illness, pharyngitis, nonspecific chest pain, HI, ACS anxiety; Less likely PE Narrative Course 32-year-old female with complaint of chest pain, shortness of breath, heart palpitations. She is complaining of body aches and sore throat also. I'm unsure if her chest pain is related to cold/flu symptoms. She denies cough, nasal congestion. PERC score 0 and No need for further workup, as <2% chance of PE. 1108: EKG with normal sinus rhythm; without ST elevation or depression; reviewed by Dr. Hinton. 1208: Chest x-ray with no acute findings. CBC and coags unremarkable. 1240: Rapid strep negative. 1325: BMP unremarkable. Troponin less than 0.02. 1419: Influenza negative. Using the HEART scale for major cardiac event the patient's Risk of MACE of 0.9-1.7%. This was discussed with the patient and she was given the option to be evaluated in chest pain center. The patient declined observation in the chest pain center and will follow up outpatient. Discussed viral illness and symptomatic management. Patient requesting a prescription for antibiotics. I will prescribe antibiotics per patient request. Azithromycin prescribed for home. Instructed patient to follow up with primary care provider. Patient verbalizes understanding and agreement with treatment plan. Patient is medically cleared and stable for discharge. Discussed reasons to return to the emergency department. Patient agrees with treatment plan. The patients vital signs are stable and the patient is stable for outpatient follow-up and treatment. Patient discharged home, stable and in no acute distress. Diagnosis Primary Impression: Chest pain Qualified Codes: R07.9 - Chest pain, unspecified Additional Impression: Viral illness Referrals: Passenger Relations Representative Primary Care Physician Patient Instructions: Chest Pain (ED), Cold Symptoms (ED), General Instructions , Safe Use of Cough and Cold Medicines in Children (ED) Departure Forms: Tests/Procedures, Work Release Enter return to work date: Jul 15, 2017 Additional Instructions: Ibuprofen or Tylenol as directed and as needed [id number] cold/flu medications as directed and as needed for symptom management Get plenty of sleep/rest Drink plenty of fluids to prevent dehydration; such as Gatorade, Powerade, Pedialyte [place] diet to encourage nutrition such as crackers, fruit, applesauce, toast, soup etc. Use an air humidifier/turn off ceiling fans Follow-up with your primary care provider Follow-up with pediatrician Return immediately to the emergency department with worsening of symptoms Med/Other Pt SpecificInfo: Prescription(s) given Scripts Azithromycin (Zithromax Z-Darrel) 250 Mg Dspk 250 MG PO DIRECTED for Infection, #1 DSPK 0 Refills 500 MG (2 tabs) day 1, then 1 tab days 2-5. Prov: Paulette Saha 07/14/17 Disposition: 01 DISCHARGE HOME Condition: Stable Paulette Saha Jul 14, 2017 11:20
[2017-07-14 11:32] VITALS: BP 108/71; PULSE 64; RESP 16; O2SAT 99
[2017-07-14 11:47] LABS: BASOPHIL % 0.5 % (0.0-2.0); EOSINOPHIL # 0.2 TH/MM3 (0-0.4); EOSINOPHIL % 2.4 % (0.0-4.0); HEMATOCRIT 38.9 % (35.0-46.0); HEMO FLAGS DIFF FINAL; LYMPH % 23.9 % (9.0-44.0); LYMPHOCYTE # 1.5 TH/MM3 (1.0-4.8); MEAN CELL VOLUME 87.4 FL (80.0-100.0); MEAN CORPUSCULAR HEMOGLOBIN 29.7 PG (27.0-34.0); MEAN CORPUSCULAR HGB CONC 33.9 % (32.0-36.0); MONO % 8.7 % (0.0-8.0); NEUT % 64.5 % (16.0-70.0); PLATELET COUNT 251 TH/MM3 (150-450); RED BLOOD COUNT 4.45 MIL/MM3 (4.00-5.30); WHITE BLOOD COUNT 6.2 TH/MM3 (4.0-11.0)
--- NOTE | 2017-07-14 12:01 | RADRPT ---
EXAM DATE/TIME: 07/14/2017 11:35 [facility] COMPARISON: CHEST SINGLE AP, November 29, 2016, 9:19. INDICATIONS : Chest pain. Patient complains of neck, chest, and throat pain. MEDICAL HISTORY : None. SURGICAL HISTORY : None. ENCOUNTER: Initial ACUITY: 4 - 6 days PAIN SCORE: 0/10 LOCATION: Bilateral chest FINDINGS: A single view of the chest demonstrates the lungs to be symmetrically aerated without evidence of mas s, infiltrate or effusion. The cardiomediastinal contours are unremarkable. Osseous structures are intact. CONCLUSION: No acute disease. Uriel Zhu MD FACR on July 14, 2017 at 11:59 Board Certified Radiologist. This report was verified electronically.
[2017-07-14 12:03] LABS: APTT (PATIENT) 27.3 SEC (24.3-30.1); INTERNATIONAL NORMALIZED RATIO 0.9 RATIO; PROTHROMBIN TIME - PATIENT 10.3 SEC (9.8-11.6)
[2017-07-14 12:22] LABS: ANION GAP 5 MEQ/L (5-15); BICARBONATE 26.2 MEQ/L (21.0-32.0); BLOOD UREA NITROGEN 10 MG/DL (7-18); CHLORIDE 105 MEQ/L (98-107); CREATINE KINASE 151 U/L (26-192); GLOMERULAR FILTRATION RATE 125 ML/MIN (>89); MAGNESIUM 1.7 MG/DL (1.5-2.5); SODIUM (NA) 136 MEQ/L (136-145)
[2017-07-14 12:27] LABS: POTASSIUM 4.2 MEQ/L (3.5-5.1)
[2017-07-14 12:39] LABS: CKMB 0.9 NG/ML (0.5-3.6)
--- NOTE | 2017-07-14 12:41 | EKG ---
Date Performed: 07/14/2017 Time Performed: 11:19:09 PTAGE: 32 years EKG: Sinus rhythm NORMAL ECG No significant change from prior electrocardiogram. DOCTOR: Guzman Burkett Interpretating Date/Time 07/14/2017 12:40:02
[2017-07-14 13:38] VITALS: BP 149/75; PULSE 75; RESP 16; O2SAT 99
[2017-07-14] MEDS ORDERED: ZITHTAB PO (14:27)
[2017-07-14 14:39] VITALS: BP 114/67; PULSE 73; RESP 14; O2SAT 99
== END 2017-07-14 14:40 | disposition home or self-care (01) ==
LOC: NEPD 10:31
DX: R07.9 Chest pain, unspecified (principal); B34.9 Viral infection, unspecified; J45.909 Unspecified asthma, uncomplicated
CPT/HCPCS: 71010; 80048; 82550; 82552; 83735; 84484; 85025; 85610; 85730; 87081; 87804; 87880; 93005

== ENCOUNTER 2017-12-08 16:57 | Observation (INO) | payer MEDICAID ==
[2017-12-08] VITALS (7 sets, daily range): BP systolic 99–115; BP diastolic 48–79; PULSE 80–126; RESP 16–20; TEMP 100.3–102.5; O2SAT 97–99
[~2017-12-08] VITALS: Ht 165.1 cm; Wt 96.1 kg
[~2017-12-08 16:57] MED LIST changes: -DOXY100C PO; -METR-1 PO; +ZITHTAB PO
[2017-12-08] MEDS ORDERED: ONDANSETRON HCL 4 MG/2 ML VIAL IV PUSH ONE (17:30)
[2017-12-08] MEDS ORDERED: ACETAMINOPHEN 325 MG TAB PO ONE (17:30)
[2017-12-08] MEDS ORDERED: SODIUM CHLOR 0.9% 1000 ML INJ 1,000 ML IV SCH ×3 (17:30→20:15)
[2017-12-08 17:42] LABS: AUTOMATED NEUTROPHIL # 8.6 TH/MM3 (1.8-7.7); BASOPHIL % 0.1 % (0.0-2.0); HEMATOCRIT 39.1 % (35.0-46.0); LYMPH % 3.4 % (9.0-44.0); LYMPHOCYTE # 0.3 TH/MM3 (1.0-4.8); MEAN CELL VOLUME 85.3 FL (80.0-100.0); MEAN CORPUSCULAR HEMOGLOBIN 28.3 PG (27.0-34.0); MEAN CORPUSCULAR HGB CONC 33.2 % (32.0-36.0); MEAN PLATELET VOLUME 8.6 FL (7.0-11.0); MONO % 5.9 % (0.0-8.0); MONOCYTE # 0.6 TH/MM3 (0-0.9); NEUT % 90.6 % (16.0-70.0); PLATELET COUNT 209 TH/MM3 (150-450); RED BLOOD COUNT 4.58 MIL/MM3 (4.00-5.30); RED CELL DISTRIBUTION WIDTH 12.6 % (11.6-17.2); WHITE BLOOD COUNT 9.5 TH/MM3 (4.0-11.0)
[2017-12-08 17:51] LABS: CHLORIDE 108 MEQ/L (98-107); SODIUM (NA) 138 MEQ/L (136-145)
[2017-12-08 17:54] LABS: CALCIUM 8.1 MG/DL (8.5-10.1)
[2017-12-08 17:55] LABS: ALBUMIN 3.6 GM/DL (3.4-5.0); BICARBONATE 22.8 MEQ/L (21.0-32.0); BLOOD UREA NITROGEN 10 MG/DL (7-18); GLUCOSE,RANDOM 156 MG/DL (74-106)
[2017-12-08 17:58] LABS: ALT (GPT) 42 U/L (10-53); AST (GOT) 27 U/L (15-37); CREATININE 0.84 MG/DL (0.50-1.00); GLOMERULAR FILTRATION RATE 96 ML/MIN (>89)
[2017-12-08 17:59] LABS: TOTAL BILIRUBIN ADULT 0.3 MG/DL (0.2-1.0); TOTAL PROTEIN 7.1 GM/DL (6.4-8.2)
[2017-12-08 18:01] LABS: ALKALINE PHOSPHATASE 88 U/L (45-117)
--- NOTE | 2017-12-08 18:02 | RADRPT ---
EXAM DATE/TIME: 12/08/2017 17:39 [facility] COMPARISON: No previous studies available for comparison. INDICATIONS : Chest pain. MEDICAL HISTORY : None. SURGICAL HISTORY : None. ENCOUNTER: Initial ACUITY: 1 day PAIN SCORE: 6/10 LOCATION: Bilateral chest FINDINGS: A single view of the chest demonstrates the lungs to be symmetrically aerated without evidence of mas s, infiltrate or effusion. The cardiomediastinal contours are unremarkable. Osseous structures are intact. CONCLUSION: No evidence of acute cardiopulmonary disease. Canelo Pulido MD on December 08, 2017 at 17:59 Board Certified Radiologist. This report was verified electronically.
[2017-12-08 18:03] LABS: LACTIC ACID SEPSIS PROTOCOL 2.6 mmol/L (0.4-2.0)
--- NOTE | 2017-12-08 18:03 | PD ---
HPI Chief Complaint: GI Complaint Time Seen by Provider: 17:07 Travel History International Travel<30 days: No Contact w/Intl Traveler<30days: No Traveled to known affect area: No History of Present Illness HPI Is a 32-year-old woman who presents to the emergency department complaining of abrupt onset nausea vomiting diarrhea feeling poorly, diarrhea, high fevers, body aches, and headaches, starting last night. She went to [employer] on Wednesday. Started feeling bad yesterday evening, especially bad early this morning. Multiple episodes of copious watery diarrhea. No vomiting. Some abdominal cramping. Muscle aches and headaches. No definite sick contacts otherwise. She otherwise is healthy. No other complaints. History Past Medical History Medical History: Denies Significant Hx LMP: 3 WEEKS AGO : 3 Para: 1 Social History Alcohol Use: Yes (occas. mix drinks) Tobacco Use: No (occas. cigs) Allergies-Medications (Allergen,Severity, Reaction): Coded Allergies: No Known Allergies (Verified Adverse Reaction, Unknown, 12/08/17) Reported Meds & Prescriptions Reported Meds & Active Scripts Active Zithromax Z-Darrel (Azithromycin) 250 Mg Dspk 250 Mg PO DIRECTED 500 MG (2 tabs) day 1, then 1 tab days 2-5. Review of Systems Except as stated in HPI: all other systems reviewed are Neg Physical Exam Narrative GENERAL: 32-year-old woman, appears uncomfortable, not acutely toxic. SKIN: Focused skin assessment warm, moist. HEAD: Atraumatic. Normocephalic. EYES: Pupils equal and round. No scleral icterus. No injection or drainage. ENT: No nasal bleeding or discharge. Mucous membranes pink and moist. NECK: Trachea midline. No JVD. CARDIOVASCULAR:Heart rate rapid but regular. No murmurs. PULMONARY: Lungs clear to auscultation. No respiratory distress per GASTROINTESTINAL: Abdomen soft, non-tender, nondistended. Hepatic and splenic margins not palpable. MUSCULOSKELETAL: No obvious deformities. No clubbing. No cyanosis. No edema. NEUROLOGICAL: Awake and alert. No obvious cranial nerve deficits. Motor grossly within normal limits. Normal speech. PSYCHIATRIC: Appropriate mood and affect; insight and judgment normal. Data Data Last Documented VS Vital Signs Date Time Temp Pulse Resp B/P (MAP) Pulse Ox O2 Delivery O2 Flow Rate FiO2 4/25/18 19:15 16 12/08/17 19:00 97 100/48 (65) 97 Room Air 12/08/17 18:19 100.3 Orders Orders Sepsis Workup Initiated (12/08/17 ) Complete Blood Count With Diff (12/08/17 17:16) Comprehensive Metabolic Panel (12/08/17 17:16) Lactic Acid Sepsis Protocol (12/08/17 17:16) Urinalysis - C+S If Indicated (12/08/17 17:16) Influenzae A/B Antigen (12/08/17 17:16) Blood Culture (12/08/17 17:16) Chest, Single Ap (12/08/17 17:16) Ecg Monitoring (12/08/17 17:16) Iv Access Insert/Monitor (12/08/17 17:16) Oximetry (12/08/17 17:16) Oxygen Administration (12/08/17 17:16) Acetaminophen (Tylenol) (12/08/17 17:30) Ondansetron Inj (Zofran Inj) (12/08/17 17:30) Ed Urine Pregnancytest Poc (12/08/17 17:16) Sodium Chlor 0.9% 1000 Ml Inj (Ns 1000 M (12/08/17 17:30) Sodium Chlor 0.9% 1000 Ml Inj (Ns 1000 M (12/08/17 17:30) Enteric Path (Stool) (12/08/17 17:16) C Diff Toxin Pcr (12/08/17 17:16) Ketorolac Inj (Toradol Inj) (12/08/17 18:15) Oseltamivir (Tamiflu) (12/08/17 18:30) Lactic Acid (12/08/17 19:00) Place In Observation (12/08/17 ) Vital Signs (Adult) Q4H (12/08/17 20:05) Activity Oob Ad Nadia (12/08/17 20:05) Intake + Output DOMINIC.QSHIFT (12/08/17 20:05) Diet Regular Basic (12/09/17 Breakfast) Sodium Chlor 0.9% 1000 Ml Inj (Ns 1000 M (12/08/17 20:05) Sodium Chloride 0.9% Flush (Ns Flush) (12/08/17 20:15) Sodium Chloride 0.9% Flush (Ns Flush) (12/08/17 21:00) Acetaminophen (Tylenol) (12/08/17 20:15) Ondansetron Inj (Zofran Inj) (12/08/17 20:15) Basic Metabolic Panel (Bmp) (12/09/17 06:00) Complete Blood Count With Diff (12/09/17 06:00) Case Management Consult (12/08/17 20:05) Scd Bilateral/Knee High DOMINIC.BID (12/08/17 20:05) Naloxone Inj (Narcan Inj) (12/08/17 20:15) Ketorolac Inj (Toradol Inj) (12/08/17 20:15) Admit Order (Ed Use Only) (12/08/17 ) Labs Laboratory Tests Test 12/08/17 17:20 12/08/17 19:10 12/08/17 19:53 White Blood Count 9.5 TH/MM3 Red Blood Count 4.58 MIL/MM3 Hemoglobin 13.0 GM/DL Hematocrit 39.1 % Mean Corpuscular Volume 85.3 FL Mean Corpuscular Hemoglobin 28.3 PG Mean Corpuscular Hemoglobin Concent 33.2 % Red Cell Distribution Width 12.6 % Platelet Count 209 TH/MM3 Mean Platelet Volume 8.6 FL Neutrophils (%) (Auto) 90.6 % Lymphocytes (%) (Auto) 3.4 % Monocytes (%) (Auto) 5.9 % Eosinophils (%) (Auto) 0.0 % Basophils (%) (Auto) 0.1 % Neutrophils # (Auto) 8.6 TH/MM3 Lymphocytes # (Auto) 0.3 TH/MM3 Monocytes # (Auto) 0.6 TH/MM3 Eosinophils # (Auto) 0.0 TH/MM3 Basophils # (Auto) 0.0 TH/MM3 CBC Comment DIFF FINAL Differential Comment Blood Urea Nitrogen 10 MG/DL Creatinine 0.84 MG/DL Random Glucose 156 MG/DL Total Protein 7.1 GM/DL Albumin 3.6 GM/DL Calcium Level 8.1 MG/DL Alkaline Phosphatase 88 U/L Aspartate Amino Transf (AST/SGOT) 27 U/L Alanine Aminotransferase (ALT/SGPT) 42 U/L Total Bilirubin 0.3 MG/DL Sodium Level 138 MEQ/L Potassium Level 3.4 MEQ/L Chloride Level 108 MEQ/L Carbon Dioxide Level 22.8 MEQ/L Anion Gap 7 MEQ/L Estimat Glomerular Filtration Rate 96 ML/MIN Lactic Acid Level 2.6 mmol/L 1.5 mmol/L Urine Color YELLOW Urine Turbidity SL CLOUDY Urine pH 6.0 Urine Specific [place] 1.025 Urine Protein 30 mg/dL Urine Glucose (UA) NEG mg/dL Urine Ketones TRACE mg/dL Urine Occult Blood NEG Urine Nitrite NEG Urine Bilirubin NEG Urine Urobilinogen 0.2 MG/DL Urine Leukocyte Esterase TRACE Urine RBC 0-3 /hpf Urine WBC 6-8 /hpf Urine Squamous Epithelial Cells > 8 /hpf Urine Bacteria OCC /hpf Microscopic Urinalysis Comment CULT NOT INDICATED MDM Medical Decision Making Medical Screen Exam Complete: Yes Emergency Medical Condition: Yes Interpretation(s) LABS: CBC is unremarkable. CMP is unremarkable. Lactate 2.6 Influenza B positive No evidence of acute cardiopulmonary disease. Differential Diagnosis Sepsis, flu, acute enteritis, infection, other Narrative Course Medical decision making 32-year-old woman presents emerged from with acute onset febrile illness, was a bit unwell, tachycardic dehydrated. Will check labs, IV fluids, stool studies, flu, reassess. FINAL: 32-year-old woman, influenza B with tachycardia fever and mildly elevated lactate. Improving but still looks a little bit unwell. Will observe overnight and make sure she is not developing sepsis. Diagnosis Primary Impression: Influenza B Admitting Information Admitting Physician Requests: Gerber Portillo MD Dec 08, 2017 18:03
[2017-12-08] MEDS ORDERED: KETOROLAC TROMETHAMINE 30 MG/ML (IVP) VIAL IV PUSH ONE (18:15)
[2017-12-08] MEDS ORDERED: OSELTAMIVIR PHOSPHATE 75 MG CAP PO ONE (18:30)
[2017-12-08 19:56] LABS: BILIRUBIN, URINE NEG (NEG); BLOOD, URINE NEG (NEG); GLUCOSE,URINE NEG (NEG); KETONE, URINE TRACE mg/dL (NEG); NITRITE,URINE NEG (NEG); URINE COLOR YELLOW (YELLW/STRAW); URINE LEUKOCYTE ESTERASE TRACE (NEG)
[2017-12-08 20:00] LABS: BACTERIA, URINE OCC /hpf; RBC, URINE 0-3 /hpf (0-3); SQUAMOUS EPITHELIAL CELL URINE > 8 /hpf (0-5)
[2017-12-08] MEDS ORDERED: NALOXONE HCL 0.4 MG/ML AMP IV PUSH PRN (20:15)
[2017-12-08] MEDS ORDERED: SODIUM CHLORIDE 0.9% FLUSH 10 ML FLUSH IV FLUSH PRN (20:15)
[2017-12-08] MEDS: SODIUM CHLOR 0.9% 1000 ML INJ 1,000 ML IV SCH (20:36)
[2017-12-08] MEDS: SODIUM CHLORIDE 0.9% FLUSH 10 ML FLUSH IV FLUSH SCH (21:00)
[2017-12-09] VITALS (8 sets, daily range): BP systolic 94–132; BP diastolic 52–72; PULSE 82–102; RESP 17–20; TEMP 98.1–102.7; O2SAT 95–100
[2017-12-09] MEDS ORDERED: KETOROLAC TROMETHAMINE 30 MG/ML (IVP) VIAL IV PUSH PRN
[2017-12-09] MEDS ORDERED: ONDANSETRON HCL 4 MG/2 ML VIAL IVP PRN
[2017-12-09] MEDS: ACETAMINOPHEN 325 MG TAB PO PRN ×2 (05:13→12:11)
[2017-12-09] MEDS: SODIUM CHLOR 0.9% 1000 ML INJ 1,000 ML IV SCH ×2 (05:14→14:07)
[2017-12-09 05:55] LABS: AUTOMATED NEUTROPHIL # 4.1 TH/MM3 (1.8-7.7); BASOPHIL % 0.6 % (0.0-2.0); EOSINOPHIL % 0.2 % (0.0-4.0); HEMATOCRIT 35.2 % (35.0-46.0); HEMOGLOBIN 11.4 GM/DL (11.6-15.3); LYMPH % 10.1 % (9.0-44.0); LYMPHOCYTE # 0.5 TH/MM3 (1.0-4.8); MEAN CELL VOLUME 85.5 FL (80.0-100.0); MEAN CORPUSCULAR HEMOGLOBIN 27.8 PG (27.0-34.0); MEAN CORPUSCULAR HGB CONC 32.5 % (32.0-36.0); MEAN PLATELET VOLUME 8.1 FL (7.0-11.0); MONO % 6.2 % (0.0-8.0); MONOCYTE # 0.3 TH/MM3 (0-0.9); NEUT % 82.9 % (16.0-70.0); PLATELET COUNT 181 TH/MM3 (150-450); RED BLOOD COUNT 4.12 MIL/MM3 (4.00-5.30); RED CELL DISTRIBUTION WIDTH 12.4 % (11.6-17.2); WHITE BLOOD COUNT 4.9 TH/MM3 (4.0-11.0)
[2017-12-09 06:53] LABS: BICARBONATE 21.6 MEQ/L (21.0-32.0); CALCIUM 7.1 MG/DL (8.5-10.1); CREATININE 0.52 MG/DL (0.50-1.00)
[2017-12-09 07:39] LABS: CALCIUM-PROTEIN CORRECTED 7.8 MG/DL (8.5-10.1); TOTAL PROTEIN 5.7 GM/DL (6.4-8.2)
[2017-12-09] MEDS: SODIUM CHLORIDE 0.9% FLUSH 10 ML FLUSH IV FLUSH SCH ×2 (09:00→21:00)
--- NOTE | 2017-12-09 09:24 | HHI.HP ---
[facility] Unknown Admission Diagnosis Influenza B, rule out sepsis Diagnoses: Chief Complaint: Diarrhea Travel History International Travel<30 Days: No Contact w/Intl Traveler <30 Da: No Traveled to Known Affected Are: No History of Present Illness 32-year-old black female being admitted for intractable diarrhea. Patient was in her usual state of health until yesterday morning when she woke up feeling warm. As the day went on she eventually developed abdominal cramping followed by repetitive rounds of nonbloody stools. Denies having any nausea vomiting. Reports a poor appetite. This morning she felt very lightheaded and diaphoretic and thus decided come to emergency department. Denies any respiratory symptoms including rhinorrhea or cough or shortness of breath. Reports abdominal cramping being diffuse and nonspecific, says this is not like her periods. Denies any dysuria. In the emergency department she was noted to be febrile 100.5 initially. Influenza swab was positive. Was given IV fluids. Review of Systems Except as stated in HPI: all other systems reviewed are Neg Past Family Social History Past Medical History None per patient Allergies: Coded Allergies: No Known Allergies (Verified Adverse Reaction, Unknown, 12/08/17) Family History Diabetes Social History Denies smoking alcohol or illicit drug use. Works at the [employer]. Physical Exam Vital Signs Vital Signs Date Time Temp Pulse Resp B/P (MAP) Pulse Ox O2 Delivery O2 Flow Rate FiO2 12/09/17 05:06 102.7 102 18 118/71 (87) 98 12/09/17 00:00 97 14 132/69 (90) 95 12/09/17 00:00 100.5 91 20 101/58 (72) 98 12/08/17 22:00 80 16 99/57 (71) 99 Room Air 12/08/17 20:59 84 16 99/52 (68) 97 Room Air 12/08/17 20:00 82 16 100/52 (68) 97 Room Air 12/08/17 19:15 16 12/08/17 19:00 97 16 100/48 (65) 97 Room Air 12/08/17 19:00 16 12/08/17 18:19 100.3 108 20 115/79 (91) 98 Room Air 12/08/17 17:15 97 Room Air 12/08/17 16:58 102.5 126 16 100/66 (77) 98 Physical Exam VS: afebrile GENERAL: Lying in bed, in no acute distress SKIN: Warm and dry. EYES: No scleral icterus. No injection or drainage. ENT: No nasal bleeding or discharge. Mucous membranes pink and moist. CARDIOVASCULAR: Regular rate and rhythm. no murmurs RESPIRATORY: No accessory muscle use. Clear to auscultation. Breath sounds equal bilaterally. GASTROINTESTINAL: Abdomen soft, mild diffuse tenderness to palpation, nondistended Extremities: No clubbing, cyanosis, or edema. No obvious deformities. MUSCULOSKELETAL: adequate muscle bulk and tone for age and habitus NEUROLOGICAL: Awake and alert. No obvious cranial nerve deficits. No facial droop nor slurred speech noted. PSYCHIATRIC: Appropriate mood and affect; insight and judgment normal. Laboratory Laboratory Tests Test 12/08/17 17:20 12/08/17 19:10 12/08/17 19:53 12/09/17 05:15 White Blood Count 9.5 Red Blood Count 4.58 Hemoglobin 13.0 Hematocrit 39.1 Mean Corpuscular Volume 85.3 Mean Corpuscular Hemoglobin 28.3 Mean Corpuscular Hemoglobin Concent 33.2 Red Cell Distribution Width 12.6 Platelet Count 209 Mean Platelet Volume 8.6 Neutrophils (%) (Auto) 90.6 Lymphocytes (%) (Auto) 3.4 Monocytes (%) (Auto) 5.9 Eosinophils (%) (Auto) 0.0 Basophils (%) (Auto) 0.1 Neutrophils # (Auto) 8.6 Lymphocytes # (Auto) 0.3 Monocytes # (Auto) 0.6 Eosinophils # (Auto) 0.0 Basophils # (Auto) 0.0 CBC Comment DIFF FINAL Differential Comment Blood Urea Nitrogen 10 Creatinine 0.84 Random Glucose 156 Total Protein 7.1 Albumin 3.6 Calcium Level 8.1 Alkaline Phosphatase 88 Aspartate Amino Transf (AST/SGOT) 27 Alanine Aminotransferase (ALT/SGPT) 42 Total Bilirubin 0.3 Sodium Level 138 Potassium Level 3.4 Chloride Level 108 Carbon Dioxide Level 22.8 Anion Gap 7 Estimat Glomerular Filtration Rate 96 Lactic Acid Level 2.6 1.5 Urine Color YELLOW Urine Turbidity SL CLOUDY Urine pH 6.0 Urine Specific [place] 1.025 Urine Protein 30 Urine Glucose (UA) NEG Urine Ketones TRACE Urine Occult Blood NEG Urine Nitrite NEG Urine Bilirubin NEG Urine Urobilinogen 0.2 Urine Leukocyte Esterase TRACE Urine RBC 0-3 Urine WBC 6-8 Urine Squamous Epithelial Cells > 8 Urine Bacteria OCC Microscopic Urinalysis Comment CULT NOT INDICATED Test 12/09/17 05:30 White Blood Count 4.9 Red Blood Count 4.12 Hemoglobin 11.4 Hematocrit 35.2 Mean Corpuscular Volume 85.5 Mean Corpuscular Hemoglobin 27.8 Mean Corpuscular Hemoglobin Concent 32.5 Red Cell Distribution Width 12.4 Platelet Count 181 Mean Platelet Volume 8.1 Neutrophils (%) (Auto) 82.9 Lymphocytes (%) (Auto) 10.1 Monocytes (%) (Auto) 6.2 Eosinophils (%) (Auto) 0.2 Basophils (%) (Auto) 0.6 Neutrophils # (Auto) 4.1 Lymphocytes # (Auto) 0.5 Monocytes # (Auto) 0.3 Eosinophils # (Auto) 0.0 Basophils # (Auto) 0.0 CBC Comment DIFF FINAL Differential Comment Blood Urea Nitrogen 6 Creatinine 0.52 Random Glucose 104 Total Protein 5.7 Calcium Level 7.1 Sodium Level 142 Potassium Level 3.4 Chloride Level 114 Carbon Dioxide Level 21.6 Anion Gap 6 Estimat Glomerular Filtration Rate 168 Protein Corrected Calcium 7.8 Date/Time Source Procedure Growth Status 12/08/17 17:20 Blood Peripheral Aerobic Blood Culture Pending Received 12/08/17 17:20 Blood Peripheral Anaerobic Blood Culture Pending Received 12/09/17 05:15 Stool Stool Pending Received 12/08/17 17:25 Nasal Washing Influenza Types A,B Antigen (KATJA) - Final Positive For Flu B Antigen Complete Result Diagram: 12/09/17 0530 12/09/17 0530 Imaging Last Impressions Chest X-Ray 12/08/17 1716 Signed Impressions: Service Date/Time: Friday, December 08, 2017 17:39 - CONCLUSION: No evidence of acute cardiopulmonary disease. MD Inocente Richmond VTE Risk Assessment Inocente VTE Risk Assessment: No/Low Risk (score <= 1) Caprini Risk Assessment Model Point Value = 1 Point Value = 2 Point Value = 3 Point Value = 5 Age 41-60 Minor surgery BMI > 25 kg/m2 Swollen legs Varicose veins or History of unexplained or recurrent spontaneous Oral contraceptives or hormone replacement Sepsis (< 1 month) Serious lung disease, including pneumonia (< 1 month) Abnormal pulmonary function Acute myocardial infarction Congestive heart failure (< 1 month) History of inflammatory bowel disease Medical patient at bed rest Age 61-74 Arthroscopic surgery Major open surgery (> 45 min) Laparoscopic surgery (> 45 min) Malignancy Confined to bed (> 72 hours) Immobilizing plaster cast Central venous access Age >= 75 History of VTE Family history of VTE Factor V Leiden Prothrombin [id number] Lupus anticoagulant Anticardiolipin antibodies Elevated serum homocysteine Heparin-induced thrombocytopenia Other congenital or acquired thrombophilia Stroke (< 1 month) Elective arthroplasty Hip, pelvis, or leg fracture Acute spinal cord injury (< 1 month) Prophylaxis Regimen Total Risk Factor Score Risk Level Prophylaxis Regimen 0-1 Low Early ambulation 2 Moderate Order ONE of the following: *Sequential Compression Device (SCD) *Heparin 5000 units SQ BID 3-4 Higher Order ONE of the following medications: *Heparin 5000 units SQ TID *Enoxaparin/Lovenox 40 mg SQ daily (WT < 150 kg, CrCl > 30 mL/min) *Enoxaparin/Lovenox 30 mg SQ daily (WT < 150 kg, CrCl > 10-29 mL/min) *Enoxaparin/Lovenox 30 mg SQ BID (WT < 150 kg, CrCl > 30 mL/min) AND/OR *Sequential Compression Device (SCD) 5 or more Highest Order ONE of the following medications: *Heparin 5000 units SQ TID (Preferred with Epidurals) *Enoxaparin/Lovenox 40 mg SQ daily (WT < 150 kg, CrCl > 30 mL/min) *Enoxaparin/Lovenox 30 mg SQ daily (WT < 150 kg, CrCl > 10-29 mL/min) *Enoxaparin/Lovenox 30 mg SQ BID (WT < 150 kg, CrCl > 30 mL/min) AND *Sequential Compression Device (SCD) Assessment and Plan Assessment and Plan 32-year-old black female being admitted for intractable diarrhea Intractable diarrhea -Suspect viral enteritis given there is no nausea or vomiting -Stool studies have already been collected, C. difficile PCR is pending although this is unlikely to be positive -IV fluids -Clear liquids as tolerated lactic acidosis - likely 2/2 dehydration 2/2 acute febrile illness, IVFs Fever -Likely viral enteritis, but if persisting, start abx, blood cultures already drawn -tylenol Influenza positive - atypical symptom manifestation above, supportive care and tamiflu otherwise SCDs Addendum: Microbiology notified that the patient indeed Shigella positive. Antibiotics of Cipro and Flagyl have been started. Barron Duckworth MD Dec 09, 2017 09:24
[2017-12-09] MEDS: OSELTAMIVIR PHOSPHATE 75 MG CAP PO SCH ×2 (10:43→21:00)
[2017-12-09] MEDS ORDERED: NAPROXEN 500 MG TAB PO ONE (14:00)
[2017-12-09] MEDS: CIPROFLOXACIN 400 MG PREMIX 200 ML IV SCH (14:50)
[2017-12-09] MEDS: metroNIDAZOLE 500 MG INJ 100 ML IV SCH ×2 (16:27→23:26)
[2017-12-09] MEDS ORDERED: SIMETHICONE 80 MG CHEWABLE TAB CHEW ONE (21:45)
[2017-12-10] VITALS (7 sets, daily range): BP systolic 84–101; BP diastolic 56–74; PULSE 70–85; RESP 15–20; TEMP 97–99.1; O2SAT 98–100
[2017-12-10] MEDS: CIPROFLOXACIN 400 MG PREMIX 200 ML IV SCH (03:08)
[2017-12-10] MEDS: SODIUM CHLOR 0.9% 1000 ML INJ 1,000 ML IV SCH (03:08)
[2017-12-10] MEDS: metroNIDAZOLE 500 MG INJ 100 ML IV SCH ×2 (07:38→07:40)
[2017-12-10] MEDS: OSELTAMIVIR PHOSPHATE 75 MG CAP PO SCH ×2 (07:39→07:41)
[2017-12-10] MEDS: SODIUM CHLORIDE 0.9% FLUSH 10 ML FLUSH IV FLUSH SCH (07:41)
[2017-12-10] MEDS ORDERED: SIMETHICONE 80 MG CHEWABLE TAB PO PRN (09:00)
[2017-12-10] MEDS: ACETAMINOPHEN 325 MG TAB PO PRN (09:43)
--- NOTE | 2017-12-10 10:15 | HHI.PR ---
Subjective Remarks Nursing denies any deterioration since last night except for intermittent headaches. Patient reports diarrhea is much improved, did note some intermittent bloody texture but otherwise unremarkable. Much improved abdominal cramping since admission as well. Tolerating p.o. intake. Objective Vital Signs Date Time Temp Pulse Resp B/P (MAP) Pulse Ox O2 Delivery O2 Flow Rate FiO2 12/10/17 08:00 97.7 76 20 97/73 (81) 98 12/10/17 06:24 97.9 76 18 94/74 (81) 12/10/17 04:00 97.0 70 15 84/56 (65) 100 12/10/17 00:07 99.1 80 16 96/64 (75) 100 12/10/17 00:00 99.0 80 16 96/64 (75) 100 12/09/17 20:07 99.8 82 17 105/72 (83) 100 12/09/17 16:00 101.0 95 19 110/58 (75) 95 12/09/17 14:11 101.6 12/09/17 12:11 100.5 12/09/17 12:00 99.9 85 19 94/52 (66) 98 I/O 12/09/17 12/09/17 12/09/17 12/10/17 12/10/17 12/10/17 07:00 15:00 23:00 07:00 15:00 23:00 Intake Total 3000 ml 820 ml 300 ml 1200 ml 120 ml Output Total 300 ml 900 ml Balance 2700 ml 820 ml -600 ml 1200 ml 120 ml Intake Oral 120 ml 100 ml 0 ml 120 ml IV Total 3000 ml 700 ml 200 ml 1200 ml Output Urine Total 300 ml 900 ml # Breastfeedings 0 # Voids 1 # Bowel Movements 1 1 Result Diagram: 12/09/17 0530 12/09/17 0530 Objective Remarks Mild diffuse tenderness to palpation over abdomen, soft, nondistended A/P Assessment and Plan 32-year-old black female being admitted for intractable diarrhea Intractable diarrhea -Much improved since admission, Shigella positive -Continue Cipro lactic acidosis - resolved Fever -resolved, likely secondary to Shigella enteritis Influenza positive - atypical symptom manifestation above, supportive care and Tamiflu otherwise Patient afebrile, tolerating p.o. intake, diarrhea much improved. Patient has met maximal benefit from hospitalization and is clinically stable for discharge. Barron Duckworth MD Dec 10, 2017 10:15
--- NOTE | 2017-12-10 10:22 | HHI.DCPOC ---
Discharge Care Plan Diagnosis: (1) Shigella enteritis (2) Shigella dysentery Goals to Promote Your Health * To prevent worsening of your condition and complications * To maintain your health at the optimal level Directions to Meet Your Goals Take your medications as prescribed Follow your dietary instruction Follow activity as directed Keep your appointments as scheduled Take your immunizations and boosters as scheduled If your symptoms worsen call your PCP, if no PCP go to Urgent Care Center or Emergency Room Smoking is Dangerous to Your Health. Avoid second hand smoke Call the 24-hour hour crisis hotline for domestic abuse at Barron Duckworth MD Dec 10, 2017 10:22
[2017-12-10] MEDS ORDERED: LACTOBACILLUS ACIDOPHILUS TAB PO ONE (11:00)
--- NOTE | 2017-12-10 11:07 | HHI.PR ---
Addendum to Inpatient Note Additional Information Pt seen around [address] Rebollar full note to follow Katt Gardner MD Dec 10, 2017 11:07
--- NOTE | 2017-12-10 11:08 | PD.ID.CON ---
History of Present Illness Service ID Consult Requested By Dr Waterman Reason for Consult Shigellosis Primary Care Physician Unknown Diagnoses: History of Present Illness 32 yo healthy female presented 2 days ago with 1 day h/o abdominal pain, bloody diarrhea, headache and fever up to 102.5 She developped the above symptoms after her trip to [place] On presentation fever, lymphopenia, lactic acidosis Positive flu B test Diarrhea subsiding, reports no more blood Stool + for Shigella, SHiga toxin negative started on cipro, flagyl c/o headache Lactic acidosis resolved Creatinine wnl No travel denies similar sickness in household members Review of Systems Gastrointestinal: COMPLAINS OF: Abdominal pain, Diarrhea Neurologic: COMPLAINS OF: Headache Except as stated in HPI: all other systems reviewed are Neg Past Family Social History Allergies: Coded Allergies: No Known Allergies (Verified Adverse Reaction, Unknown, 12/08/17) Past Medical History none Past Surgical History denies Active Ordered Medications Medications where reviewed in EMR Antibiotics Include: Family History diabetes Social History No Tobacco. No ETOH. No Illicit Drugs. Physical Exam Vital Signs Vital Signs Date Time Temp Pulse Resp B/P (MAP) Pulse Ox O2 Delivery O2 Flow Rate FiO2 12/10/17 10:43 18 12/10/17 08:00 97.7 76 20 97/73 (81) 98 12/10/17 06:24 97.9 76 18 94/74 (81) 12/10/17 04:00 97.0 70 15 84/56 (65) 100 12/10/17 00:07 99.1 80 16 96/64 (75) 100 12/10/17 00:00 99.0 80 16 96/64 (75) 100 12/09/17 20:07 99.8 82 17 105/72 (83) 100 12/09/17 16:00 101.0 95 19 110/58 (75) 95 12/09/17 14:11 101.6 12/09/17 12:11 100.5 12/09/17 12:00 99.9 85 19 94/52 (66) 98 Physical Exam CONSTITUTIONAL/GENERAL: This is an obese young patient, in no apparent distress. Appears ill TUBES/LINES/DRAINS: SKIN: No jaundice, rashes, or lesions. Skin temperature appropriate. Not diaphoretic. HEAD: Atraumatic. Normocephalic. EYES: Pupils equal and round and reactive. Extraocular motions intact. No scleral icterus. No injection or drainage. Fundi not examined. ENT: Hearing grossly normal. Nose without bleeding or purulent drainage. Throat without visible erythema, exudates, masses, or lesions. NECK: Trachea midline. Supple, nontender. CARDIOVASCULAR: Regular rate and rhythm without murmurs, gallops, or rubs. No JVD. Peripheral pulses symmetric. RESPIRATORY/CHEST: Symmetric, unlabored respirations. Clear to auscultation. Breath sounds equal bilaterally. No wheezes, rales, or rhonchi. GASTROINTESTINAL: Abdomen soft, diffusely mildly to moderately tender without rebound , nondistended. No hepato-splenomegaly, or palpable masses. No guarding. Bowel sounds present. GENITOURINARY: Without palpable bladder distension. MUSCULOSKELETAL: Extremities without clubbing, cyanosis, or edema. No joint tenderness or effusion noted. No calf tenderness. No mottling or clubbing. LYMPHATICS: No palpable cervical or supraclavicular adenopathy. NEUROLOGICAL: Awake and alert. Motor and sensory grossly within normal limits. Follows commands. Cognitively sharp. Moves all extremities. PSYCHIATRIC: No obvious anxiety/depression. no apparent hallucinations or other psychotic thought process. Laboratory Date/Time Source Procedure Growth Status 12/08/17 17:20 Blood Peripheral Aerobic Blood Culture - Preliminary NO GROWTH IN 2 DAYS Resulted 12/08/17 17:20 Blood Peripheral Anaerobic Blood Culture - Preliminary NO GROWTH IN 2 DAYS Resulted 12/09/17 05:15 Stool Stool - Final Shigella Species Complete 12/08/17 17:25 Nasal Washing Influenza Types A,B Antigen (KATJA) - Final Positive For Flu B Antigen Complete Result Diagram: 12/09/17 0530 12/09/17 0530 Imaging Last Impressions Chest X-Ray 12/08/17 1716 Signed Impressions: Service Date/Time: Friday, December 08, 2017 17:39 - CONCLUSION: No evidence of acute cardiopulmonary disease. Canelo Pulido MD Assessment and Plan Assessment and Plan Influenza B Shigellosis Clinically improving Headache - cont tamiflu for influenza cont cipro, OK to switch to po total duration of tx x 5 days dc flagyl retest stool if cont to have diarrhea chk KATJA to cipro Discussed Condition With Dr Donita ballard lab Katt Gardner MD Dec 10, 2017 11:08
[2017-12-10] MEDS ORDERED: CIPR500T2 PO (11:53)
== END 2017-12-10 13:48 | disposition home or self-care (01) ==
LOC: PHED 16:57 → PHEDA 20:08 → PH3B 23:50
PROVIDERS: ADMIT Hospitalist; ATTEND Hospitalist
DX: J10.1 Influenza due to other identified influenza virus with other respiratory manifestations (principal); A03.3 Shigellosis due to Shigella sonnei; E86.0 Dehydration; R50.9 Fever, unspecified; R00.0 Tachycardia, unspecified; E87.2 Acidosis; R51 Headache
CPT/HCPCS: 71045; 80048; 80053; 81001; 83605; 84155; 85025; 87040; 87077; 87186; 87493; 87506; 87804; 96361; 96365; 96366; 96367; 96375; 96376; 99285; G0378; J0744; J1885; J2405; J7030